=== PATIENT | female | born 1980 | race Caucasian/White ===

== ENCOUNTER 2021-01-06 07:48 | Outpatient (REF) | payer BC, SELFPAY ==
[2021-01-06 10:42] LABS: MANUAL DIFF FLAG NO
[2021-01-06 10:45] LABS: Basophils Percent Auto 0.6 % (0-2); Eosinophils Absolute Auto 0.1 X10*3/uL (0.0-0.4); Eosinophils Percent Auto 1.7 % (0-4); Hematocrit 39.1 % (37-47); Hemoglobin 12.7 g/dl (12.0-16.0); Imm Gran Abs Auto 0.02 X10*3/uL (0.00-0.03); Imm Gran Pct Auto 0.3 % (0.0-0.4); Lymphocytes Absolute Auto 2.8 X10*3/uL (1.2-4.9); Lymphocytes Percent Auto 45.2 % (20-40); Mean Corpuscular HGB Conc 32.5 g/dl (31.0-35.0); Mean Corpuscular Hemoglobin 29.6 pg (27.0-33.0); Mean Corpuscular Volume 91.1 fL (80-98); Monocytes Absolute Auto 0.5 X10*3/uL (0.1-1.2); Monocytes Percent Auto 8.4 % (2-11); Neutrophils Absolute Auto 2.8 X10*3/uL (2.0-8.3); Neutrophils Percent Auto 43.8 % (45-73); Platelet Count 321 X10*3/uL (160-400); Red Blood Count 4.29 X10*6/uL (4.20-5.50); Red Cell Distribution Width 13.3 % (11.0-16.0); White Blood Count 6.3 X10*3/uL (4.8-10.8)
[2021-01-06 11:11] LABS: Alanine Aminotransferase 12 U/L (0-31); Albumin Level 4.2 g/dL (3.5-5.0); Alkaline Phosphatase 33 U/L (39-117); Anion Gap 12 (12-20); Aspartate Amino Transferase 15 U/L (5-31); Bilirubin Total 0.7 mg/dL (0.0-1.0); Blood Urea Nitrogen 10 mg/dL (9-16); Calcium 9.1 mg/dL (8.4-10.2); Carbon Dioxide 25 mmol/L (22-29); Chloride 107 mmol/L (96-108); Cholesterol 197 mg/dL; Estimated Glomerular Filt Rate > 60; Glucose Fasting 87 mg/dL (60-99); HDL Cholesterol 71 mg/dL; LDL Cholesterol Calculated 104 mg/dl; Potassium 4.4 mmol/L (3.3-5.1); Sodium 140 mmol/L (135-145); Total Protein 6.9 g/dL (6.5-8.0); Triglycerides 110 mg/dL
[2021-01-06 11:33] LABS: TSH reflex Free T4 0.85 uIU/mL (0.32-4.0)
== END 2021-01-06 07:49 | disposition home or self-care (01) ==
LOC: HO.WFDLDS 07:48
PROVIDERS: Visit Provider Family Medicine
DX: Z00.00 Encounter for general adult medical examination without abnormal findings (principal)
CPT/HCPCS: 36415; 80053; 80061; 84443; 85025

== ENCOUNTER 2021-04-28 13:32 | Outpatient (REF) | payer BC, SELFPAY ==
[2021-04-29 02:50] LABS: CT PCR DETECTED (Not Detect.); NG PCR NOT DETECTED (Not Detect.)
[2021-04-29 11:03] LABS: BV Int Neg Control Negative (Negative); BV Int Pos Control Positive (Positive)
[2021-05-02 23:52] LABS: HPV mRNA E6/E7 rflx Not Detected (Not Detected)
== END 2021-04-28 13:33 | disposition home or self-care (01) ==
LOC: HO.LAB 13:32
PROVIDERS: Advanced Practice Midwife; PCP Hospitalist; Visit Provider Advanced Practice Midwife
DX: Z01.419 Encounter for gynecological examination (general) (routine) without abnormal findings (principal); Z11.51 Encounter for screening for human papillomavirus (HPV); Z20.2 Contact with and (suspected) exposure to infections with a predominantly sexual mode of transmission
CPT/HCPCS: 87480; 87491; 87510; 87591; 87624; 87660; 88142

== ENCOUNTER 2022-01-06 07:12 | Outpatient (REF) | payer BC, SELFPAY ==
[2022-01-06 11:16] LABS: MANUAL DIFF FLAG NO
[2022-01-06 11:25] LABS: Basophils Absolute Auto 0.1 X10*3/uL (0.0-0.2); Basophils Percent Auto 0.7 % (0-2); Eosinophils Absolute Auto 0.1 X10*3/uL (0.0-0.4); Eosinophils Percent Auto 2.1 % (0-4); Hematocrit 40.4 % (37.0-47.0); Hemoglobin 12.8 g/dl (12.0-16.0); Imm Gran Abs Auto 0.02 X10*3/uL (0.00-0.03); Imm Gran Pct Auto 0.3 % (0.0-0.4); Lymphocytes Absolute Auto 2.5 X10*3/uL (1.2-4.9); Mean Corpuscular HGB Conc 31.7 g/dl (31.0-35.0); Mean Corpuscular Hemoglobin 28.8 pg (27.0-33.0); Mean Corpuscular Volume 90.8 fL (80.0-98.0); Mean Platelet Volume 9.9 fL (9.4-12.3); Monocytes Absolute Auto 0.6 X10*3/uL (0.1-1.2); Monocytes Percent Auto 8.6 % (2-11); Neutrophils Absolute Auto 3.5 x10*3/uL (2.0-8.3); Neutrophils Percent Auto 51.3 % (45-73); Platelet Count 338 X10*3/uL (160-400); Red Blood Count 4.45 X10*6/uL (4.20-5.50); Red Cell Distribution Width 13.1 % (11.0-16.0); White Blood Count 6.8 X10*3/uL (4.8-10.8)
[2022-01-06 12:00] LABS: Alanine Aminotransferase 12 U/L (0-31); Alkaline Phosphatase 37 U/L (39-117); Anion Gap 12 (12-20); Aspartate Amino Transferase 17 U/L (5-31); Bilirubin Total 0.6 mg/dL (0.0-1.0); Blood Urea Nitrogen 9 mg/dL (9-16); Calcium 8.7 mg/dL (8.4-10.2); Carbon Dioxide 25 mmol/L (22-29); Chloride 107 mmol/L (96-108); Cholesterol 199 mg/dL; Estimated Glomerular Filt Rate > 60; Glucose Fasting 86 mg/dL (60-99); HDL Cholesterol 78 mg/dL; LDL Cholesterol Calculated 105 mg/dl; Potassium 4.4 mmol/L (3.3-5.1); Sodium 140 mmol/L (135-145); Total Protein 6.6 g/dL (6.5-8.0); Triglycerides 82 mg/dL
[2022-01-06 12:01] LABS: Appearance Urine Clear; Color Urine Yellow; Glucose Urine UA Negative (Negative); Leukocyte Esterase Urine Trace (Negative); Nitrite Urine Negative (Negative); Specific Gravity - Urine <= 1.005 (1.005-1.025); Urine Blood Negative (Negative); Urine Ketones Negative (Negative); Urine Protein Negative (Neg-Trace)
[2022-01-06 12:10] LABS: Bacteria Urine None Seen (None Seen); Hyaline Casts Urine 0-2 /LPF (0-2); RBC Urine 0-2 /HPF (0-2); Squamous Epithelial Cell Urine 0-2 /HPF (0-2); WBC Urine 0-5 /HPF (0-5)
[2022-01-06 12:14] LABS: HBS Num1 6.46 mIU/mL (0-7.99); HBc Num1 0.06 S/CO (0.00-0.79); HBsAGNum1 0.17 S/CO (0.00-0.99); HIV AB/AG Nonreactive (Nonreactive); HIV Num 1 0.05 S/CO (0.00-0.99); Hepatitis B Core Antibody Nonreactive (Nonreactive); Hepatitis B Surface Antigen Negative (Negative); ~HepC Num1 0.06 S/CO (0.00-0.79); ~Hepatitis B Surface Antibody NONREACTIVE (Nonreactive); ~Hepatitis C Antibody Nonreactive (Nonreactive)
[2022-01-06 12:15] LABS: TSH reflex Free T4 0.81 uIU/mL (0.32-4.0)
[2022-01-07 07:15] LABS: Syphilis Screen Nonreactive (Nonreactive)
== END 2022-01-06 07:13 | disposition home or self-care (01) ==
LOC: HO.WFDLDS 07:12
PROVIDERS: Visit Provider Family Medicine
DX: Z00.00 Encounter for general adult medical examination without abnormal findings (principal); Z11.3 Encounter for screening for infections with a predominantly sexual mode of transmission
CPT/HCPCS: 36415; 80053; 80061; 81001; 81003; 84443; 85025; 86704; 86706; 86780; 86803; 87340; 87389

== ENCOUNTER 2022-04-29 13:33 | Outpatient (REF) | payer BC, SELFPAY ==
[2022-04-30 02:09] LABS: CT PCR NOT DETECTED (Not Detect.); NG PCR NOT DETECTED (Not Detect.)
[2022-04-30 11:16] LABS: BV Int Neg Control Negative (Negative); BV Int Pos Control Positive (Positive)
== END 2022-04-29 13:34 | disposition home or self-care (01) ==
LOC: HO.LNP 13:33
PROVIDERS: Visit Provider Advanced Practice Midwife
DX: Z01.419 Encounter for gynecological examination (general) (routine) without abnormal findings (principal)
CPT/HCPCS: 87480; 87491; 87510; 87591; 87660

== ENCOUNTER 2022-12-30 07:07 | Outpatient (REF) | payer BC, SELFPAY ==
[2022-12-30 11:56] LABS: Appearance Urine Clear; Color Urine Yellow; Glucose Urine UA Negative (Negative); Leukocyte Esterase Urine Negative (Negative); Nitrite Urine Negative (Negative); PH 8.5 (5.0-9.0); Urine Blood Negative (Negative); Urine Ketones Negative (Negative); Urine Protein Negative (Neg-Trace)
[2022-12-30 12:08] LABS: Syphilis Screen Nonreactive (Nonreactive)
[2022-12-30 12:19] LABS: Alanine Aminotransferase 26 U/L (0-31); Alkaline Phosphatase 45 U/L (39-117); Anion Gap 8 (12-20); Aspartate Amino Transferase 24 U/L (5-31); Bilirubin Total 0.5 mg/dL (0.0-1.0); Blood Urea Nitrogen 11 mg/dL (9-16); Carbon Dioxide 29 mmol/L (22-29); Chloride 108 mmol/L (96-108); Cholesterol 204 mg/dL; Estimated Glomerular Filt Rate > 60; Glucose Fasting 82 mg/dL (60-99); HDL Cholesterol 80 mg/dL; LDL Cholesterol Calculated 108 mg/dl; Potassium 4.3 mmol/L (3.3-5.1); Sodium 141 mmol/L (135-145); TSH reflex Free T4 0.78 uIU/mL (0.32-4.0); Total Protein 6.6 g/dL (6.5-8.0); Triglycerides 82 mg/dL
[2022-12-30 12:34] LABS: HIV AB/AG Nonreactive (Nonreactive); HIV Num 1 0.06 S/CO (0.00-0.99); Hepatitis B Surface Antigen Negative (Negative); ~HepC Num1 0.05 S/CO (0.00-0.79); ~Hepatitis C Antibody Nonreactive (Nonreactive)
== END 2022-12-30 07:08 | disposition home or self-care (01) ==
LOC: HO.WFDLDS 07:07
PROVIDERS: Advanced Practice Midwife; Visit Provider Family Medicine
DX: Z01.419 Encounter for gynecological examination (general) (routine) without abnormal findings (principal); Z00.00 Encounter for general adult medical examination without abnormal findings; Z12.4 Encounter for screening for malignant neoplasm of cervix; Z30.09 Encounter for other general counseling and advice on contraception; Z20.2 Contact with and (suspected) exposure to infections with a predominantly sexual mode of transmission
CPT/HCPCS: 36415; 80053; 80061; 81003; 84443; 86780; 86803; 87340; 87389

== ENCOUNTER 2023-03-17 15:51 | Outpatient (AMB) | payer BC, SELFPAY ==
--- NOTE | 2023-03-17 15:54 | A.OFFPC_ITS ---
Vital Signs 03/17/23 15:55 Height 5 ft 5 in Weight 131 lb 4 oz BMI 21.8 BP 120/68 Blood Pressure Location Lt brachial Position Sitting Intake Visit Reasons: PE Intake Note: Patient is here for her physical today. Patient is requesting a referral to [facility] dermatology. Patient would like her flu shot today. Allergies Cats Allergy (Unknown, Uncoded 03/17/23 15:57) WATERY EYES, PCN Allergy (Unknown, Uncoded 03/17/23 15:57) anaphylaxis Medication List - Last Reconciled 03/17/23 by Zander Jj MD norgestrel-ethinyl estradiol 0.3-30 mg-mcg (Low-Ogestrel (28)) 1 tab PO DAILY Tobacco use date assessed: 03/17/23 HPI PE HPI Details 42 y/o female presents for a CPE with f/ u labs and health maintenance. Labs were drawn 12/30/22. Reviewed labs with pt. Triglycerides 82. TC 204. LDL 108. HDL 80. PFSH Surgical History Hx of LASIK Social History Housing: House Alcohol intake: current Alcohol intake frequency: holidays/special occasions only Alcohol type: wine Patient Tobacco Use Status: Never used Tobacco e-Cigarette/Vaping Use: Never Used Second Hand Smoke Exposure: No service: No Current occupational status: employed Current occupational exposures/hazards: No Cognitive needs: No Hearing needs: No Vision needs: No Female Reproductive History Menstrual Age of Menarche: 9 Questionnaire Thrive Questionnaire Date Thrive assessed: 01/05/22 PATRICE-7 AMB Questionnaire PATRICE-7 Date PATRICE - 7 assessed: 01/05/22 Source: Developed by Drs. Gilmer George, Ilene Jones, Renaldo Veliz and colleagues, with an educational giovanni from [employer]. Review of Systems Const Denies chills, Denies fatigue, Denies fever(s), Denies headache(s) and Denies weakness Eyes Denies change in vision ENT Denies dizziness, Denies headache(s), Denies hearing loss, Denies nasal congestion, Denies sinus pain, Denies sinus pressure and Denies sore throat Card Denies chest pain, Denies lightheadedness, Denies dyspnea and Denies other (palpitations) Resp Denies cough, Denies dyspnea and Denies wheezing GI Denies abdominal pain, Denies melena, Denies hematochezia, Denies change in bowel habits, Denies dyspepsia and Denies nausea Denies hematuria and Denies dysuria Musc Denies abnormal gait, Denies myalgias, Denies arthralgias, Denies numbness and Denies tingling Skin/Breast Denies rash, Denies unusual bruising and Denies wounds Neuro Denies abnormal gait, Denies dizziness, Denies headache(s), Denies memory loss, Denies numbness, Denies Sensory deficit (Neuro), Denies tingling and Denies weakness Psych Denies anxiety, Denies depression and Denies memory loss Endo Denies cold intolerance, Denies fatigue, Denies heat intolerance, Denies polydipsia and Denies polyuria George/Lymph Denies easy bleeding and Denies easy bruising Aller/Immun Denies wheezing Physical exam (Primary Care) Vital Signs: Last Vital Signs BP 120/68 03/17/23 15:55 BMI result Body Mass Index 21.8 Tobacco/Smoking Status: Tobacco use Status Tobacco use date assessed 03/17/23 03/17/23 16:00 Patient Tobacco Use Status Never used Tobacco 03/17/23 16:00 e-Cigarette/Vaping Use Never Used 03/17/23 16:00 Thrive Assessment: Date of Thrive Assessment Date Thrive assessed 01/05/22 03/17/23 16:00 Const General: no acute distress, well developed, alert and awake Nutritional Appearance: well nourished Orientation/consciousness: patient oriented x3 HENMT Head: Yes normocephalic and Yes atraumatic Ears: hearing grossly normal bilaterally and TM's normal bilaterally General nose exam: Normal external nose present and Normal nares present Mouth: Normal oral and palatal mucosa present and moist mucous membranes Teeth and gingiva: dentition normal Throat: Yes posterior oropharynx normal Eyes General: appearance normal, both eyes and all related structures Pupils: Equal, round and reactive pupils present and Pupil accommodation reflex normal EOM: EOMs intact bilaterally Neck Other: 3 cm lipoma at back of neck Neck: Yes normal visual inspection, Yes no lymphadenopathy and Yes trachea mi dline Thyroid: Thyroid normal Carotids: no bruits Lymphatic: no lymphadenopathy noted Chest Chest palpation & inspection: normal inspection of the chest Resp Effort & Inspection: normal respiratory effort Auscultation: clear to auscultation bilaterally Cardio Rate: regular rate Rhythm: regular rhythm Heart sounds: S1 normal heart sound present, S2 normal heart sound present, no gallops, no murmurs and no rubs Bruits: no abdominal aortic bruits and no carotid bruits GI Palpation (GI): No Abdominal aortic bruit present, Soft to palpation, nontender, No hepatosplenomegaly present and No Rebound tenderness present Auscultation: normal bowel sounds General: Yes no CVA tenderness Back/Spine/Pelvis Back: no CVA tenderness Cervical Spine: cervical ROM normal and No Cervical spine tenderness Thoracic/Lumbar Spine: thoraco-lumbar ROM normal, No pain with thoraco-lumbar ROM, No thoracic spinal tenderness and No lumbar spinal tenderness Skin Lesions: no lesions Rashes: no rashes Trauma: no lacerations or abrasions Wounds: no wounds Nails: normal Neuro General: patient oriented x3 Cranial nerves: Yes Equal, round and reactive pupils present Cognition (Neuro): normal cognition Gait exam (Neuro): Normal gait present Motor exam (neuro): 5/5 motor strength present throughout Sensory Exam: No Sensory deficit (Neuro) Deep tendon reflexes (DTR's): Right patellar reflex intensity grade: 2+ and Left patellar reflex intensity grade: 2+ Extrem General: Yes normal to inspection and No edema Psych Appearance: grossly normal Affect: normal affect Attitude: cooperative Thought process: Normal thought process present Office Procedures Flu Questionnaire Does the patient have a severe egg allergy?: No Does the patient have severe life threatening allergies?: No Does the patient have a fever or illness today?: No Has the patient ever had Guillain-Susan Syndrome?: No Has the patient ever had any past reaction to a flu shot?: No Immunizations flu vacc [id number] 6mos up(PF) 60 mcg(15 mcgx4)/0.5 mL IM syringe Performing Provider: Zander Jj MD Performing Location: [facility] [place] [facility] Administered by: Aicha Cheng CMA on 03/17/23 16:18 Dose Route Admin Location Dispensed Lot Number Expiration Date NDC Brick Paver 0.5 mL IM Left Deltoid 0.5 mL [id number] 11/14/23 79933-636-08 [employer] VIS Given Date VIS Provided VIS Publication Date 03/17/23 Single Vaccine 20 Eligibility Eligibility Date Funding Source Not [facility] Eligible 03/17/23 Private Assessment and Plan Assessment & Plan (1) Annual physical exam: Code(s): Z00.00 - Encounter for general adult medical examination without abnormal findings Plan: 42-year-old?female?presents?for?complete?physical?exam Encouraged?ongoing?healthy?diet?with?active?lifestyle?and?plenty?of?exercise (2) Screening for malignant neoplasm of cervix: Comment: 04/28/21 pap= neg w neg hpv Code(s): Z12.4 - Encounter for screening for malignant neoplasm of cervix Plan: Scheduled?for?Pap?smear?in?April Follow-up?with?your?biopsychologist (3) Lipoma: Code(s): D17.9 - Benign lipomatous neoplasm, unspecified Plan: 2-3?cm,?mildly?irritated?lipoma?at?right?posterolateral?neck Referred?to?dermatology?as?per?patient?request (4) Breast cancer screening by mammogram: Code(s): Z12.31 - Encounter for screening mammogram for malignant neoplasm of breast Plan: Mammogram?ordered?by?her?biopsychologist She?will?request?that?the?report?be?forwarded?to?me?as?well Orders: Orders Influenza [id number] Immunization Today Z23 - Encounter for immunization Referrals Dermatology Referral D17.9 - Benign lipomatous neoplasm, unspecified Coding Level of Care Code Est Pt Prev Care 40-64y(60015) Diagnoses Annual physical exam Z00.00 Screening for malignant neoplasm of cervix Z12.4 Lipoma D17.9 Breast cancer screening by mammogram Z12.31
[2023-03-17 15:55] VITALS: BP 120/68; BMI 21.8
== END 2023-03-17 17:08 | disposition home or self-care (01) ==
PROVIDERS: PCP Hospitalist; Visit Provider Family Medicine
DX: Z00.00 Encounter for general adult medical examination without abnormal findings (principal); D17.9 Benign lipomatous neoplasm, unspecified; Z12.31 Encounter for screening mammogram for malignant neoplasm of breast; Z23 Encounter for immunization
CPT/HCPCS: 90471; 90686; 99396

== ENCOUNTER 2023-06-17 13:58 | Outpatient (AMB) | payer BC, SELFPAY ==
[2023-06-17 14:01] VITALS: BP 120/72; BMI 21.6
--- NOTE | 2023-06-17 14:01 | MHC.OFFVIS ---
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 She is not having any issues at all. She was on control pills for many years and liked having her period every 28 days but decided to go off them last June and she feels very good being off the pills and she is getting her periods about every 25 days. She has not been sexually active and she is very very careful because of her history of herpes. If she does become sexually active which she may she plans to use condoms. She is in a new relationship and feeling very good about it. She is exercising and taking care of herself she runs and does yoga and she started taking but ballet. 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 [facility] Surgical History Hx of [facility] Social History Housing: House Alcohol intake: current Alcohol intake frequency: holidays/special occasions only Alcohol type: wine Patient Tobacco Use Status: Never used Tobacco e-Cigarette/Vaping Use: Never Used Second Hand Smoke Exposure: No service: No Current occupational status: employed Current occupational exposures/hazards: No Cognitive needs: No Hearing needs: No Vision needs: No Female Reproductive History Menstrual Age of Menarche: 9 Duration of menses: 3-5 days Date of last menstrual period: 05/27/23 control method: none Total pregnancies: 1 Full term: 1 Number of Living Children: 1 Date of last pap smear: 04/29/21 History of abnormal pap smear: No History of STI: Yes (HSV 2) Date of Mammogram: 06/05/23 History of abnormal mammogram: No Physical Exam Vital Signs: Last Vital Signs BP 120/72 06/17/23 14:01 BMI result Body Mass Index 21.6 Const General: healthy appearing, comfortable, no acute distress, well developed and alert Nutritional Appearance: average body habitus Orientation/consciousness: patient oriented x3 Limitations: no limitations HEENT Head: Yes normocephalic Neck Neck: Yes normal visual inspection Chest Chest palpation & inspection: normal inspection of the chest Breast/axilla inspection: normal inspection of the breasts and normal inspection of the axillae Breast/axilla palpation: normal palpation of the breasts and normal palpation of the axillae Resp Effort & Inspection: normal respiratory effort GI Inspection: Yes normal to inspection, No Abdominal wall edema and No distended Palpation (GI): Soft to palpation and nontender General: Yes bladder normal to palpation External Female Exam: normal external appearance and normal appearance of the urethra Speculum Exam - Vagina: normal appearance of the vagina, normal palpation and normal vaginal discharge Speculum Exam - Cervix: normal appearance of the cervix, normal palpation and nontender Bimanual exam- vagina & uterus: normal bimanual exam, normal palpation, uterine size normal, bladder normal to palpation, consistency normal, normal palpation, uterine mobility normal, uterine shape normal, No Cervical tenderness present, non-tender and no cervical motion tenderness Bimanual Exam- Adnexa, other: normal adnexae, no masses, normal and No adnexal tenderness Neuro General: patient oriented x3 Results Reviewed Results Reviewed: Name: Nelda Cortes Age/Sex: 41/F Attending: Miri Frye CNM : 1980 Submitted by: Karissa Singh CNM Copies to: Miri Frye CNM MR #: [id number] Kami Fernandez NP Status: DEP REF Collected: 04/28/21 Location: .LAB Received: 04/29/21 Interpretation Satisfactory for evaluation. Negative for intraepithelial lesion or malignancy. HPV mRNA E6/E7: NOT DETECTED This assay detects E6/E7 viral messenger RNA (mRNA) from 14 high-risk HPV types (16, 18, 31, 33, 35, 39, 45, 51, 52, 56, 58, 59, 66, 68) HPV testing performed by [facility], [place], [place]. See reference laboratory portion of the EMR for entire report. Clinical Information LMP: 04/08/21 Previous PAP test: Unknown Date, WNL Material Received ThinPrep Cervical Copies To Miri Frye [address] [place], [place] [id number] Karissa Singh [address] [place] [address] Kami Fernandez NP [address] [place], [place] [id number] Electronically Signed By: CLOVER Rizo (ASCP) 05/14/21 1300 Patient: Nelda Cortes Age/Sex: 41/F MR#: [id number] Page 1 of 2 Assessment & Plan Assessment & Plan (1) Screening for malignant neoplasm of cervix: Comment: 04/28/21 pap= neg w neg hpv Code(s): Z12.4 - Encounter for screening for malignant neoplasm of cervix (2) Well woman exam with routine gynecological exam: Code(s): Z01.419 - Encounter for gynecological examination (general) (routine) without abnormal findings (3) Breast cancer screening by mammogram: Code(s): Z12.31 - Encounter for screening mammogram for malignant neoplasm of breast (4) control counseling: Comment: Stopped her control pills June 2022. Will continue with condoms when she needs it Code(s): Z30.09 - Encounter for other general counseling and advice on contraception Plan -----Discussed in this visit the following: healthy balanced diet, regular and consistent exercise, getting recommended health screens, doing the best she can for her particular health concerns, kegel exercises, pap smear screening and followup recommendations, mammography screening and SBE, normal changes in cycles in her life stage--- . Reviewed her menstrual cycles and symptoms of ovulation and recommend being very aware of that as an additional adjunct to her plan for condom use. She is doing very well taking excellent care of herself and is feeling very hopeful about her new relationship. She would not be due for another Pap smear until 2025 and she gets regular mammograms and just had 1 in April. We will see her next year. Coding Level of Care Code Est Pt Prev Care 40-64y(73653) Diagnoses Screening for malignant neoplasm of cervix Z12.4 Well woman exam with routine gynecological exam Z01.419 Breast cancer screening by mammogram Z12.31 control counseling Z30.09
== END 2023-06-17 14:45 | disposition home or self-care (01) ==
LOC: HO.HWSM 13:58
PROVIDERS: PCP Hospitalist; Visit Provider Advanced Practice Midwife
DX: Z12.4 Encounter for screening for malignant neoplasm of cervix (principal); Z01.419 Encounter for gynecological examination (general) (routine) without abnormal findings; Z12.31 Encounter for screening mammogram for malignant neoplasm of breast; Z30.09 Encounter for other general counseling and advice on contraception
CPT/HCPCS: 99396

== ENCOUNTER → 2023-06-17 13:58 | Outpatient (BNVA) | payer BC, SELFPAY | PROVIDERS: PCP Hospitalist; Visit Provider Advanced Practice Midwife ==

== ENCOUNTER 2023-08-11 13:59 | Outpatient (AMB) | payer BC, SELFPAY ==
[2023-08-11 14:05] VITALS: BP 98/64; BMI 22.3
--- NOTE | 2023-08-11 14:05 | A.OFFVIS_ITS ---
Intake Vital Signs 08/11/23 14:05 Height 5 ft 5 in Weight 134 lb BMI 22.3 BP 98/64 Intake Visit Reasons: control consult Intake Note: would like the low-ogestral that she used to take in the past. currently taking an old script of this med. 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 Allergies Cats Allergy (Unknown, Uncoded 08/11/23 14:07) WATERY EYES, PCN Allergy (Unknown, Uncoded 08/11/23 14:07) anaphylaxis Medication List - Last Reconciled 08/11/23 by Karissa Singh CNM norgestrel-ethinyl estradiol 0.3-30 mg-mcg (Low-Ogestrel (28)) 1 tab PO DAILY Is last menstrual period known: Yes Last menstrual period: 08/10/23 Post menopausal: No HPI control consult HPI Details Is here to restart the control pills that she had been on before she had taken a break for about a year to see how things would be in her body and then she became sexually active again and was using condoms for a while but they are challenging. She has in a committed relationship and not worried about other factors at this time she has a very healthy lifestyle and is very physically active. She does not smoke she knows about the things to watch for in terms of blood clots and other concerns she had her mammogram done last fall right before her annual exam. She has the pills with her that she has been on and she just wants a refill on that prescription. She has restarted an old pack that she had but did not notice any adverse effects from restarting the pills, she wants the same ones she was on. [facility] Surgical History Hx of [facility] Social History Housing: House Alcohol intake: current Alcohol intake frequency: holidays/special occasions only Alcohol type: wine Patient Tobacco Use Status: Never used Tobacco e-Cigarette/Vaping Use: Never Used Second Hand Smoke Exposure: No service: No Current occupational status: employed Current occupational exposures/hazards: No Cognitive needs: No Hearing needs: No Vision needs: No Female Reproductive History Menstrual Age of Menarche: 9 Duration of menses: <3 days Date of last menstrual period: 08/10/23 control method: pills Total pregnancies: 1 Full term: 1 Number of Living Children: 1 Date of last pap smear: 04/29/21 (negative) Date of Mammogram: 06/05/23 Physical Exam Vital Signs: Last Vital Signs BP 98/64 08/11/23 14:05 BMI result Body Mass Index 22.3 Results Reviewed Results Reviewed: Name: Nelda Cortes Age/Sex: 41/F Attending: Miri Frye CNM : 1980 Submitted by: Karissa Singh CNM Copies to: Miri Frye CNM MR #: [id number] Kami Fernandez NP Status: DEP REF Collected: 04/28/21 Location: .LAB Received: 04/29/21 Interpretation Satisfactory for evaluation. Negative for intraepithelial lesion or malignancy. HPV mRNA E6/E7: NOT DETECTED This assay detects E6/E7 viral messenger RNA (mRNA) from 14 high-risk HPV types (16, 18, 31, 33, 35, 39, 45, 51, 52, 56, 58, 59, 66, 68) HPV testing performed by [facility], [place], [place]. See reference laboratory portion of the EMR for entire report. Clinical Information LMP: 04/08/21 Previous PAP test: Unknown Date, WNL Material Received ThinPrep Cervical Copies To Miri Frye CNM [address] [place] [address] [place] [address] Karissa Singh CNM [address] [place] [address] [place] [address] Kami Fernandez NP [address] [place] [phone] Electronically Signed By: CLOVER Rizo ([facility]) 05/14/21 1300 Patient: Nelda Cortes Age/Sex: 41/F MR#: [id number] Page 1 of 2 Assessment & Plan Assessment & Plan (1) control counseling: Comment: Stopped her control pills June 2022. Will continue with condoms when she needs to. 08/11/2023 she wishes to formally restart the pills that she had stopped. She has restarted already with a pack she had left over. Reordered prescription. Code(s): Z30. - Encounter for other general counseling and advice on contraception Plan Reviewed the control pills in detail including potential side effects and danger signs and what to look for and she is at low risk for any of those things she also has not noticed any decrease in libido since restarting them. We will see her for her annual exam when it is due and I have sent a prescription for 3 month supply with 4 refills to tide her over she is a Wednesday start and will be starting the next pack on Wednesday and is currently on her menses on the placebo pills. Medications: New norgestrel-ethinyl estradiol 0.3-30 mg-mcg (Low-Ogestrel (28)) 1 tab PO DAILY 84 tabs 4RF Coding Level of Care Code Est Pt Level 3 (38959) Diagnoses control counseling Z30.09
== END 2023-08-11 15:25 | disposition home or self-care (01) ==
PROVIDERS: PCP Hospitalist; Visit Provider Advanced Practice Midwife
DX: Z30.09 Encounter for other general counseling and advice on contraception (principal)
CPT/HCPCS: 99213

== ENCOUNTER → 2023-08-11 13:59 | Outpatient (BNVA) | payer BC, SELFPAY | PROVIDERS: PCP Hospitalist; Visit Provider Advanced Practice Midwife ==

== ENCOUNTER 2024-01-12 07:45 | Outpatient (REF) | payer BC, SELFPAY ==
[2024-01-12 11:10] LABS: Appearance Urine Cloudy; Color Urine Yellow; Glucose Urine UA Negative (Negative); Leukocyte Esterase Urine Moderate (2+) (Negative); Nitrite Urine Negative (Negative); PH 7.5 (5.0-9.0); UMIC TRIGGER UA YES; Urine Blood Negative (Negative); Urine Ketones Negative (Negative); Urine Protein 30 (1+) mg/dL (Neg-Trace)
[2024-01-12 11:18] LABS: Bacteria Urine 4+ (None Seen); RBC Urine 0-2 /HPF (0-2); WBC Urine 21-50 /HPF (0-5)
[2024-01-12 11:45] LABS: Alanine Aminotransferase 12 U/L (0-31); Albumin Level 3.9 g/dL (3.5-5.0); Alkaline Phosphatase 29 U/L (39-117); Anion Gap 10 (12-20); Aspartate Amino Transferase 15 U/L (5-31); Bilirubin Total 0.4 mg/dL (0.0-1.0); Blood Urea Nitrogen 12 mg/dL (9-16); Calcium 8.7 mg/dL (8.4-10.2); Carbon Dioxide 26 mmol/L (22-29); Chloride 108 mmol/L (96-108); Cholesterol 187 mg/dL (<200); Estimated Glomerular Filt Rate > 60; Glucose Fasting 86 mg/dL (60-99); HDL Cholesterol 69 mg/dL (>40); LDL Cholesterol Calculated 101 mg/dL (<100); Potassium 4.1 mmol/L (3.3-5.1); Sodium 140 mmol/L (135-145); Total Protein 6.5 g/dL (6.5-8.0); Triglycerides 86 mg/dL (<150)
[2024-01-12 12:07] LABS: Creatinine Urine 106.49 mg/dL; Microalbum/Creatinine Ratio Ur 13.1 ug/mg cr (<30)
[2024-01-12 12:09] LABS: TSH reflex Free T4 0.82 uIU/mL (0.32-4.0)
== END 2024-01-12 07:46 | disposition home or self-care (01) ==
LOC: HO.WFDLDS 07:45
PROVIDERS: Visit Provider Family Medicine
DX: Z00.00 Encounter for general adult medical examination without abnormal findings (principal); D17.9 Benign lipomatous neoplasm, unspecified; I10 Essential (primary) hypertension
CPT/HCPCS: 36415; 80053; 80061; 81001; 82043; 82570; 84443

== ENCOUNTER → 2024-03-20 15:47 | Outpatient (BNVA) | payer BC, SELFPAY | PROVIDERS: PCP Hospitalist; Visit Provider Family Medicine | DX: Z00.00 Encounter for general adult medical examination without abnormal findings (principal); E78.00 Pure hypercholesterolemia, unspecified; R21 Rash and other nonspecific skin eruption | CPT/HCPCS: 96127 ==

== ENCOUNTER → 2024-03-20 15:47 | Outpatient (AMB) | payer BC, SELFPAY ==
--- NOTE | 2024-03-20 16:25 | A.OFFPC_ITS ---
Vital Signs 03/20/24 16:30 Height 5 ft 5 in Weight 136 lb 6 oz BMI 22.7 BP 108/60 Blood Pressure Location Lt brachial Position Sitting Respiration 14 Pulse 67 Pulse Source Pulse Oximeter Temp 98.6 F Temp Source Temporal Artery Scan Pulse Oximetry (%) 100 Oxygen Delivery Method Room Air Intake Visit Reasons: CPE with f/u labs and health maint. - see comments Intake Note: CPE Allergies Cats Allergy (Unknown, Uncoded 08/11/23 14:07) WATERY EYES, PCN Allergy (Unknown, Uncoded 08/11/23 14:07) anaphylaxis Tobacco use date assessed: 03/20/24 Dental Screening Dental Screen Date: 03/20/24 Did you have a dental visit in the last 12 months?: Yes Did you have a dental problem in the last 6 months where you did not have access to dental care?: No Was dental information given to patient?: Patient has dentist HPI CPE with f/u labs and health maint. - see comments HPI Details 43 y/o female presents for a CPE with f/ u labs and health maint. Labs drawn 01/12/24. Reviewed labs with pt. Triglycerides 86. TC 187. LDL 101. HDL 69. 4+ urine bacteria seen. Has complaints of a rash. PFSH Surgical History Hx of LASIK Social History (Updated 03/20/24 @ 16:28 by [facility]ad Cruz [facility] Housing: House Alcohol intake: current Alcohol intake frequency: holidays/special occasions only Alcohol type: wine Patient Tobacco Use Status: Never used Tobacco e-Cigarette/Vaping Use: Never Used Second Hand Smoke Exposure: No Use of substances other than those prescribed or required for medical reasons: No service: No Current occupational status: employed Current occupational exposures/hazards: No Cognitive needs: No Hearing needs: No Vision needs: No Female Reproductive History Menstrual Age of Menarche: 9 Questionnaire PHQ-9 Over the last 2 weeks, how often have you been bothered by any of the following problems? 1. Little interest or pleasure in doing things: not at all 2. Feeling down, depressed, or hopeless: not at all 3. Trouble falling or staying asleep, or sleeping too much: not at all 4. Feeling tired or having little energy: not at all 5. Poor appetite or overeating: not at all 6. Feeling bad about yourself - or that you are a failure or have let yourself or your family down: not at all 7. Trouble concentrating on things, such as reading the newspaper or watching television: not at all 8. Moving or speaking so slowly that other people could have noticed. Or the opposite - being so fidgety or restless that you have been moving around a lot more than usual: not at all 9. Thoughts that you would be better off or of hurting yourself in some way: not at all Total score: 0 Depression Screening Interpretation: Negative Depression Screening Done: Yes 33122 - PHQ-9 Billing: Yes Source: Developed by Drs. Gilmer George, Ilene Jones, Renaldo Veliz and colleagues, with an educational giovanni from [employer]. Thrive Questionnaire Date Thrive assessed: 03/20/24 I am a: Patient What is your living situation today?: I have a steady place to live Within the past 12 months, did the food you bought not last and you didn't have the money to get more?: Never true Within the past 12 months, did you worry whether your food would run out before you got money to buy more?: Never true Do you have trouble paying for medicines?: No Do you have trouble getting transportation to medical appointments?: No Do you have trouble paying your heating and electricity bill?: No Do you have trouble taking care of your child, family member or friend?: No Do you have trouble with day-to-day activities such as bathing, preparing meals, shopping, managing finances, etc.?: No Are you currently unemployed and looking for a job?: No Are you interested in more education?: No Please select the resources that you would like help with: None Currently or been in a relationship where the following occur: No concerns reported THRIVE Score: 0 AUDIT C Alcohol Use Questionnaire (AUDIT-C) 1. How often do you have a drink containing alcohol?: 2-4 times a month 2. How many drinks containing alcohol do you have on a typical day when you are drinking?: 1 or 2 3. How often do you have six or more drinks on one occasion?: Never Total Score: 2 Score Reviewed/Action Taken: Yes PATRICE-7 AMB Questionnaire PATRICE-7 Date PATRICE - 7 assessed: 03/20/24 Feeling nervous, anxious, or on edge: 0 = Not at all Not being able to stop or control worryin = Not at all Worrying too much about different things: 0 = Not at all Trouble relaxin = Several days Being so restless that it is hard to sit still: 0 = Not at all Becoming easily annoyed or irritable: 0 = Not at all Feeling afraid as if something awful might happen: 0 = Not at all Total PATRICE-7 score (0-4 normal; 5-9 mild; 10-14 moderate; 15-21 severe): 1 Source: Developed by Drs. Gilmer George, Ilene Jones, Renaldo Veliz and colleagues, with an educational giovanni from [employer]. PATRICE-7 Assessment Billing PATRICE-7 Assessment Tool: PATRICE-7 Assessment 27382 Review of Systems Const Denies chills, Denies fatigue, Denies fever(s), Denies headache(s) and Denies weakness Eyes Denies change in vision ENT Denies dizziness, Denies headache(s), Denies hearing loss, Denies nasal congestion, Denies sinus pain, Denies sinus pressure and Denies sore throat Card Denies chest pain, Denies lightheadedness, Denies dyspnea and Denies other (palpitations) Resp Denies cough, Denies dyspnea and Denies wheezing GI Denies abdominal pain, Denies melena, Denies hematochezia, Denies change in bowel habits, Denies dyspepsia and Denies nausea Denies hematuria and Denies dysuria Musc Denies abnormal gait, Denies myalgias, Denies arthralgias, Denies numbness and Denies tingling Skin/Breast Denies rash, Denies unusual bruising and Denies wounds Neuro Denies abnormal gait, Denies dizziness, Denies headache(s), Denies memory loss, Denies numbness, Denies Sensory deficit (Neuro), Denies tingling and Denies weakness Psych Denies anxiety, Denies depression and Denies memory loss Endo Denies cold intolerance, Denies fatigue, Denies heat intolerance, Denies polydipsia and Denies polyuria George/Lymph Denies easy bleeding and Denies easy bruising Aller/Immun Denies wheezing Physical exam (Primary Care) Vital Signs: Last Vital Signs Temp 98.6 F 03/20/24 16:30 Pulse 67 03/20/24 16:30 Resp 14 03/20/24 16:30 BP 108/60 03/20/24 16:30 Pulse Ox 100 03/20/24 16:30 Oxygen Delivery Method Room Air 03/20/24 16:30 BMI result Body Mass Index 22.7 Tobacco/Smoking Status: Tobacco use Status Tobacco use date assessed 03/20/24 03/20/24 16:29 Patient Tobacco Use Status Never used Tobacco 03/20/24 16:29 e-Cigarette/Vaping Use Never Used 03/20/24 16:29 PHQ-9: PHQ-9 Score PHQ-9: Total score 0 03/20/24 17:01 Depression Screening Interpretation: Negative Thrive Assessment: Date of Thrive Assessment Date Thrive assessed 03/20/24 03/20/24 16:29 Currently or been in a relationship where the following occur: No concerns reported Const General: no acute distress, well developed, alert and awake Nutritional Appearance: well nourished Orientation/consciousness: patient oriented x3 HENMT Head: Yes normocephalic and Yes atraumatic Ears: hearing grossly normal bilaterally and TM's normal bilaterally General nose exam: Normal external nose present and Normal nares present Mouth: Normal oral and palatal mucosa present and moist mucous membranes Teeth and gingiva: dentition normal Throat: Yes posterior oropharynx normal Eyes General: appearance normal, both eyes and all related structures Pupils: Equal, round and reactive pupils present and Pupil accommodation reflex normal EOM: EOMs intact bilaterally Neck Neck: Yes normal visual inspection, Yes no lymphadenopathy and Yes trachea midline Thyroid: Thyroid normal Carotids: no bruits Lymphatic: no lymphadenopathy noted Chest Chest palpation & inspection: normal inspection of the chest Resp Effort & Inspection: normal respiratory effort Auscultation: clear to auscultation bilaterally Cardio Rate: regular rate Rhythm: regular rhythm Heart sounds: S1 normal heart sound present, S2 normal heart sound present, no gallops, no murmurs and no rubs Bruits: no abdominal aortic bruits and no carotid bruits GI Palpation (GI): No Abdominal aortic bruit present, Soft to palpation, nontender, No hepatosplenomegaly present and No Rebound tenderness present Auscultation: normal bowel sounds General: Yes no CVA tenderness Back/Spine/Pelvis Back: no CVA tenderness Cervical Spine: cervical ROM normal and No Cervical spine tenderness Thoracic/Lumbar Spine: thoraco-lumbar ROM normal, No pain with thoraco-lumbar ROM, No thoracic spinal tenderness and No lumbar spinal tenderness Skin Lesions: no lesions Rashes: no rashes Trauma: no lacerations or abrasions Wounds: no wounds Nails: normal Neuro General: patient oriented x3 Cranial nerves: Yes Equal, round and reactive pupils present Cognition (Neuro): normal cognition Gait exam (Neuro): Normal gait present Motor exam (neuro): 5/5 motor strength present throughout Sensory Exam: No Sensory deficit (Neuro) Deep tendon reflexes (DTR's): Right patellar reflex intensity grade: 2+ and Left patellar reflex intensity grade: 2+ Extrem General: Yes normal to inspection and No edema Psych Appearance: grossly normal Affect: normal affect Attitude: cooperative Thought process: Normal thought process present Coding Level of Care Code Est Pt Level 3 (52302) Est Pt Prev Care 40-64y(62186) Diagnoses Annual physical exam Z00.00 Elevated LDL cholesterol level E78.00 Screening for malignant neoplasm of cervix Z12.4 Breast cancer screening by mammogram Z12.31 Screening for colon cancer Z12.11 Rash and nonspecific skin eruption R21 Additional Codes PATRICE-7 Assessment Billing - PATRICE-7 Assessment Tool: PATRICE-7 Assessment 92604 ( [id number]) Assessment & Plan Assessment & Plan (1) Annual physical exam: Code(s): Z00.00 - Encounter for general adult medical examination without abnormal findings Category: Medical Plan: 43-year-old?female?presents?for?complete?physical?exam Encouraged?healthy?diet?with?active?lifestyle?and?plenty?of?exercise (2) Elevated LDL cholesterol level: Code(s): E78.00 - Pure hypercholesterolemia, unspecified Category: Medical Plan: Mildly?elevated?LDL?cholesterol.??Her?HDL?ratios?are?good Work?on?a?diet?lower?in?saturated?fats?and?cholesterol No?indication?for?medicine?at?this?time (3) Screening for malignant neoplasm of cervix: Comment: 04/28/21 pap= neg w neg hpv Code(s): Z12.4 - Encounter for screening for malignant neoplasm of cervix Category: Medical Plan: Followed?by?[facility]?hr associate Pap?smear?earlier?this?year?was?negative Continue?screening?with?gynecology?as?recommended (4) Breast cancer screening by mammogram: Code(s): Z12.31 - Encounter for screening mammogram for malignant neoplasm of breast Category: Medical Plan: Mammogram?in?May?was?negative?for?malignancy.??Continue?annual?screening (5) Screening for colon cancer: Code(s): Z12.11 - Encounter for screening for malignant neoplasm of colon Category: Medical Plan: Patient?is?43.??She?has?never?had?a?colonoscopy Referred?to?GI (6) Rash and nonspecific skin eruption: Code(s): R21 - Rash and other nonspecific skin eruption Category: Medical Plan: Has?seen?dermatology?in?the?past?and?was?given?triamcinolone Refilled?this Orders: Orders Comprehensive Robert Lee. Panel Fast Today Z00.00 - Encounter for general adult medical examination without abnormal findings, Z12.11 - Encounter for screening for malignant neoplasm of colon Lipid Panel Today Z00.00 - Encounter for general adult medical examination without abnormal findings, Z12.11 - Encounter for screening for malignant neoplasm of colon TSH reflex Free T4 Today Z00.00 - Encounter for general adult medical examination without abnormal findings, Z12.11 - Encounter for screening for malignant neoplasm of colon UA and rflx microscopic Today Z00.00 - Encounter for general adult medical examination without abnormal findings, Z12.11 - Encounter for screening for malignant neoplasm of colon Complete Blood Count Auto Diff Today Z00.00 - Encounter for general adult medical examination without abnormal findings, Z12.11 - Encounter for screening for malignant neoplasm of colon Microalbumin, Random (w Creat) Today I10 - Essential (primary) hypertension, Z12.11 - Encounter for screening for malignant neoplasm of colon Referrals Gastroenterology Referral Z12.11 - Encounter for screening for malignant neoplasm of colon Medications: New triamcinolone acetonide 0.1% 1 appl topical BID 14 days 60 grams 0RF
[2024-03-20 16:30] VITALS: BP 108/60; PULSE 67; RESP 14; TEMP 37; O2SAT 100; BMI 22.7
== END ==
LOC: HO.HMCFM 15:48
PROVIDERS: PCP Hospitalist; Visit Provider Family Medicine
DX: Z00.00 Encounter for general adult medical examination without abnormal findings (principal); E78.00 Pure hypercholesterolemia, unspecified; R21 Rash and other nonspecific skin eruption; Z12.31 Encounter for screening mammogram for malignant neoplasm of breast; Z12.11 Encounter for screening for malignant neoplasm of colon

== ENCOUNTER 2024-06-09 09:08 | Outpatient (REF) | payer BC, SELFPAY ==
[2024-06-09 12:39] LABS: Influenza A PCR NEGATIVE (Negative); Influenza B PCR NEGATIVE (Negative); Resp Syncy Virus RNA Qual PCR NEGATIVE (Negative); SARS COV2 PCR INHOUSE NEGATIVE (Negative)
--- OUTSIDE RECORDS SUMMARY | 2024-06-09 13:58 | XMS_ITS | Data Portability ---
Author Organization [facility] UROLOGY Address [address] [facility] [address] [place] [address] Care Team Providers Care Property Claim Rep Name Role Phone NAGI HERNANDES Primary Care Provider NAGI HERNANDES Referring Provider Assessment No assessment recorded. Plan of Treatment Reminders Order Date Submit Date Provider Last Modified By Organization Details Last Modified Time Details Appointments None recorded. Lab None recorded. Referral dermatologi st referral - Patient with atopic dermatitis on face resistant to Medrol Dosepak and long prednisone taper. 2018 019 ANGIE Welsh MD, [address] [place] [address], [facility] [address], [place], [address], 9 10:28:35 Procedures None recorded. Surgeries None recorded. Imaging None recorded. Medication Orders hydroxyzine HCl 25 mg tablet [email or web address] [facility], [address] [place] [address], [address], 9 13:21:43 methylpredn isolone 4 mg tablets in a dose pack 2018 [email or web address] [facility], [address] [place] [address], [address], 9 13:21:49 triamcinolo ne acetonide 0.1 % topical cream [email or web address] [facility], [address] [place] [address], [address], 9 13:21:56 prednisone 10 mg tablet [email or web address] [facility], [address] [place] [address], [address], 9 14:03:19 Patient TargetsNo targets recorded. Patient InstructionsNo instructions recorded. 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 Referring Physician: Fransisca Avendaño, Family Medicine, Encounter Date: 08/09/2018 Results Created Date Observation Date Name Description Value Unit Range Abnormal Flag Note LastModifiedBy Organization Detail LastModifiedTime 12/29/19 18 12/28/2017 lipid panel , serum cholesterol, total 189 mg/dL <200 normal Not Available [facility] [address], [address], 12/28/2017 16:53:14 12/29/19 18 12/28/2017 lipid panel , serum HDL cholesterol 76 mg/dL >50 normal Not Available [facility] [address], [address], 12/28/2017 16:53:14 12/29/19 18 12/28/2017 lipid panel , serum triglyceride s 100 mg/dL <150 normal Not Available [facility] [address], [address], 12/28/2017 16:53:14 12/29/19 18 12/28/2017 lipid panel , serum LDL-choleste rol 93 mg/dL _(sarwat c) normal Refer ence range : <100 Sd able range <100 mg/dL for prima ry preve ntion ; <70 mg/dL for patie nts with CHD or diabe tic patie nts with > or = 2 CHD risk facto rs. LDL-C is now calcu lated using the [facility] n-Hop kins calcu prasad n, which is a valid ated novel metho d garciai demetri kendy r accur acy than the Fried lluvia equat ion in the estim ation of LDL-C . Dayanara valdivia SS et al. ELISHA. 2013; 310(1 9): 2061- 2068 (http ://ed ucati on.[employer]lon[employer]hy Works. Material Mix/f aq/FA Q164) Not Available [facility] [place] [facility] [address], [place], [address], 12/28/2017 16:53:14 12/29/19 18 12/28/2017 lipid panel , serum chol/HDLC ratio 2.5 (calc ) <5.0 normal Not Available [facility] [place] [facility] [address], [place], [address], 12/28/2017 16:53:14 12/29/19 18 12/28/2017 lipid panel , serum non HDL cholesterol 113 mg/dL _(sarwat c) <130 normal For patie nts with diabe sam plus 1 major ASCVD risk facto r, treat ing to a non-H DL-C goal of <100 mg/dL (LDL- C of <70 mg/dL ) is jeanette rouse n. Not Available [facility] [place] [facility] [address], [place], [address], 12/28/2017 16:53:14 12/29/19 18 12/28/2017 CMP, serum or plasm a glucose 86 mg/dL 65-99 normal Fasti ng refer ence inter marta Not Available [facility] [place] [facility] [address], [place], [address], 12/28/2017 16:53:15 12/29/19 18 12/28/2017 CMP, serum or plasm a urea nitrogen (BUN) 10 mg/dL 7-[address] [facility] [address], [place], [address], 12/28/2017 16:53:15 12/29/19 18 12/28/2017 CMP, serum or plasm a creatinine 0.78 mg/dL 0.50-1 .10 normal Not Available [facility] [place] [facility] [address] [place], [place], [address], 12/28/2017 16:53:15 12/29/19 18 12/28/2017 CMP, serum or plasm a eGFR non-afr. st helenian 96 mL/mi n/1.7 3m2 > or = 60 normal Not Available [facility] [place] [facility] [address] [place], [place], [address], 12/28/2017 16:53:15 12/29/19 18 12/28/2017 CMP, serum or plasm a eGFR 111 mL/mi n/1.7 3m2 > or = 60 normal Not Available [facility] [place] [facility] [address] [place], [place], [address], 12/28/2017 16:53:15 12/29/19 18 12/28/2017 CMP, serum or plasm a BUN/creatini ne ratio NOT APPLIC ABLE (calc ) 6-22 normal Not Available [facility] [place] [facility] [address] [place], [place], [address], 12/28/2017 16:53:15 12/29/19 18 12/28/2017 CMP, serum or plasm a sodium 138 mmol/ L 135-14 6 normal Not Available [facility] [address] [place], [place], [address], 12/28/2017 16:53:15 12/29/19 18 12/28/2017 CMP, serum or plasm a potassium 4.3 mmol/ L 3.5-5. 3 normal Not Available [facility] [address] [place], [place], [address], 12/28/2017 16:53:15 12/29/19 18 12/28/2017 CMP, serum or plasm a chloride 104 mmol/ L 98-110 normal Not Available [facility] [address] [place], [place], [address], 12/28/2017 16:53:15 12/29/19 18 12/28/2017 CMP, serum or plasm a carbon dioxide 25 mmol/ L 20-32 normal Not Available [facility] [address] [place], [place], [address], 12/28/2017 16:53:15 12/29/19 18 12/28/2017 CMP, serum or plasm a calcium 8.9 mg/dL 8.6-10 .2 normal Not Available [facility] [address] [place], [place], [address], 12/28/2017 16:53:15 12/29/19 18 12/28/2017 CMP, serum or plasm a protein, total 6.9 g/dL 6.1-8. 1 normal Not Available [facility] [address] [place], [place], [address], 12/28/2017 16:53:15 12/29/19 18 12/28/2017 CMP, serum or plasm a albumin 4.3 g/dL 3.6-5. 1 normal Not Available [facility] [address] [place], [place], [address], 12/28/2017 16:53:15 12/29/19 18 12/28/2017 CMP, serum or plasm a globulin 2.6 g/dL_ (calc ) 1.9-3. 7 normal Not Available [facility] [address] [place], [place], [address], 12/28/2017 16:53:15 12/29/19 18 12/28/2017 CMP, serum or plasm a albumin/glob ulin ratio 1.7 (calc ) 1.0-2. 5 normal Not Available [facility] [place] [facility] [address] [place], [place], [address], 12/28/2017 16:53:15 12/29/19 18 12/28/2017 CMP, serum or plasm a bilirubin, total 0.5 mg/dL 0.2-1. 2 normal Not Available [facility] [place] [facility] [address] [place], [place], [address], 12/28/2017 16:53:15 12/29/19 18 12/28/2017 CMP, serum or plasm a alkaline phosphatase 35 U/L 33-115 normal Not Available [facility] [place] [facility] [address] [place], [place], [address], 12/28/2017 16:53:15 12/29/19 18 12/28/2017 CMP, serum or plasm a AST 12 U/L 10-30 normal Not Available [facility] [place] [facility] [address] [place], [place], [address], 12/28/2017 16:53:15 12/29/19 18 12/28/2017 CMP, serum or plasm a ALT 11 U/L 6-29 normal Not Available [facility] [place] [facility] [address], [place], [address], 12/28/2017 16:53:15 12/29/19 18 12/28/2017 TSH, serum or plasm a TSH w/reflex to FT4 1.15 mIU/L normal Refer ence Range > or = 20 Years 0.40- 4.50 Pregn trenton Range s First trime ster 0.26- 2.66 Secon d trime ster 0.55- 2.73 Third trime ster 0.43- 2.[address] [facility] [address] [place], [place], [address], 12/28/2017 17:42:40 08/14/20 18 12/28/2017 vitam in D, 25-hy droxy , total , serum vitamin D,25-oh,tota l,ia 48 NG/mL 30-100 normal Vitam in D Statu s 25-OH Vitam in D: Defic iency : <20 ng/mL Insuf ficie ncy: 20 - 29 ng/mL Optim al: > or = 30 ng/mL For 25-OH Vitam in D testi ng on patie nts on D2-augustine pplem entat ion and patie nts for whom quant itati on of D2 and D3 fract ions is requi red, the [facility] Assur eD(TM ) 25-OH VIT D, (D2,D 3), LC/MS /MS is recom georgette d: order code 61547 (ihsan ents >2yrs ). For more infor jay valdivia on this test, go to: http: //[facility] kimani valdivia.bird stdia gnost ics.c om/fa q/FAQ 163 (This link is being provi ded for infor jay nal/e ducat ional purpo ses only. ) Not Available [facility] [address], [address], 12/28/2017 19:25:13 12/29/19 18 12/28/2017 CBC w/ auto diff white blood cell count 6.6 thous and/u L 3.8-10 .8 normal Not Available [facility] [address], [place], [address], 12/28/2017 19:25:13 12/29/19 18 12/28/2017 CBC w/ auto diff red blood cell count 4.38 rachell on/uL 3.80-5 [address] [facility] [address], [place], [address], 12/28/2017 19:25:13 12/29/19 18 12/28/2017 CBC w/ auto diff hemoglobin 12.9 g/dL 11.7-1 5.5 normal Not Available [facility] [place] [facility] [address], [place], [address], 12/28/2017 19:25:13 12/29/19 18 12/28/2017 CBC w/ auto diff hematocrit 38.9 % 35.0-4 5.0 normal Not Available [facility] [place] [facility] [address], [place], [address], 12/28/2017 19:25:13 12/29/19 18 12/28/2017 CBC w/ auto diff MCV 88.8 fL 80.0-1 00.0 normal Not Available [facility] [place] [facility] [address], [place], [address], 12/28/2017 19:25:13 12/29/19 18 12/28/2017 CBC w/ auto diff MCH 29.5 pg 27.0-3 3.0 normal Not Available [facility] [place] [facility] [address], [place], [address], 12/28/2017 19:25:13 12/29/19 18 12/28/2017 CBC w/ auto diff MCHC 33.2 g/dL 32.0-3 6.0 normal Not Available [facility] [place] [facility] [address], [place], [address], 12/28/2017 19:25:13 12/29/19 18 12/28/2017 CBC w/ auto diff RDW 12.7 % 11.0-1 5.0 normal Not Available [facility] [place] [facility] [address], [place], [address], 12/28/2017 19:25:13 12/29/19 18 12/28/2017 CBC w/ auto diff platelet count 288 thous and/u L 140-40 0 normal Not Available [facility] [place] [facility] [address], [place], [address], 12/28/2017 19:25:13 12/29/19 18 12/28/2017 CBC w/ auto diff MPV 9.9 fL 7.5-12 .5 normal Not Available [facility] [place] [facility] [address], [place], [address], 12/28/2017 19:25:13 12/29/19 18 12/28/2017 CBC w/ auto diff absolute neutrophils 3650 cells /uL 1500-7 800 normal Not Available [facility] [place] [facility] [address], [place], [address], 12/28/2017 19:25:13 12/29/19 18 12/28/2017 CBC w/ auto diff absolute lymphocytes 2264 cells /uL 850-39 00 normal Not Available [facility] [place] [facility] [address], [place], [address], 12/28/2017 19:25:13 12/29/19 18 12/28/2017 CBC w/ auto diff absolute monocytes 561 cells /uL 200-95 0 normal Not Available [facility] [place] [facility] [address], [place], [address], 12/28/2017 19:25:13 12/29/19 18 12/28/2017 CBC w/ auto diff absolute eosinophils 73 cells /uL 15-500 normal Not Available [facility] [place] [facility] [address], [place], [address], 12/28/2017 19:25:13 12/29/19 18 12/28/2017 CBC w/ auto diff absolute basophils 53 cells /uL 0-200 normal Not Available [facility] [place] [facility] [address], [place], [address], 12/28/2017 19:25:13 12/29/19 18 12/28/2017 CBC w/ auto diff neutrophils 55.3 % normal Not Available [facility] [place] [facility] [address], [place], [address], 12/28/2017 19:25:13 12/29/19 18 12/28/2017 CBC w/ auto diff lymphocytes 34.3 % normal Not Available [facility] [place] [facility] [address], [place], [address], 12/28/2017 19:25:13 12/29/19 18 12/28/2017 CBC w/ auto diff monocytes 8.5 % normal Not Available [facility] [place] [facility] [address], [place], [address], 12/28/2017 19:25:13 12/29/19 18 12/28/2017 CBC w/ auto diff eosinophils 1.1 % normal Not Available [facility] [place] [facility] [address], [place], [address], 12/28/2017 19:25:13 12/29/19 18 12/28/2017 CBC w/ auto diff basophils 0.8 % normal Not Available [facility] [place] [facility] [address], [place], [address], 12/28/2017 19:25:13 12/03/19 19 12/02/2018 lipid panel , serum cholesterol, total 190 mg/dL <200 normal Not Available [facility] [place] [facility] [address], [place], [address], 12/02/2018 19:56:28 12/03/1912/02/2018 lipid panel , serum HDL cholesterol 74 mg/dL >50 normal Not Available [facility] [place] [facility] [address] [place], [place], [address], 12/02/2018 19:56:28 12/03/1912/02/2018 lipid panel , serum triglyceride s 96 mg/dL <150 normal Not Available [facility] [place] [facility] [address] [place], [place], [address], 12/02/2018 19:56:28 12/03/1912/02/2018 lipid panel , serum LDL-choleste rol 97 mg/dL _(sarwat c) normal Refer ence range : <100 Sd able range <100 mg/dL for prima ry preve ntion ; <70 mg/dL for patie nts with CHD or diabe tic patie nts with > or = 2 CHD risk facto rs. LDL-C is now calcu lated using the [facility] n-Hop kins calcu latio n, which is a valid ated novel iraida rodriguez accur acpat than the Fried lluvia equat ion in the estim ation of LDL-C . Dayanara valdivia SS et al. ELISHA. 2013; 310(1 9): 2061- 2068 (http ://ed ucati on.[employer]lon[employer]hy Works. Material Mix/f aq/FA Q164) Not Available [facility] [place] [facility] [address] [place], [place], [address], 12/02/2018 19:56:28 12/03/1912/02/2018 lipid panel , serum chol/HDLC ratio 2.6 (calc ) <5.0 normal Not Available [facility] [place] [facility] [address], [place], [address], 12/02/2018 19:56:28 12/03/1912/02/2018 lipid panel , serum non HDL cholesterol 116 mg/dL _(sarwat c) <130 normal For patie nts with diabe sam plus 1 major ASCVD risk facto r, treat ing to a non-H DL-C goal of <100 mg/dL (LDL- C of <70 mg/dL ) is jeanette britto n. Not Available [facility] [place] [facility] [address], [place], [address], 12/02/2018 19:56:28 12/03/1912/02/2018 CMP, serum or plasm a glucose 79 mg/dL 65-99 normal Fasti ng refer ence inter marta Not Available [facility] [address] [place], [place], [address], 12/02/2018 19:56:29 12/03/1912/02/2018 CMP, serum or plasm a urea nitrogen (BUN) 17 mg/dL 7-25 normal Not Available [facility] [address] [place], [place], [address], 12/02/2018 19:56:29 12/03/1912/02/2018 CMP, serum or plasm a creatinine 0.83 mg/dL 0.50-1 .10 normal Not Available [facility] [address] [place], [place], [address], 12/02/2018 19:56:29 12/03/1912/02/2018 CMP, serum or plasm a eGFR non-afr. st helenian 88 mL/mi n/1.7 3m2 > or = 60 normal Not Available [facility] [address] [place], [place], [address], 12/02/2018 19:56:29 12/03/1912/02/2018 CMP, serum or plasm a eGFR 102 mL/mi n/1.7 3m2 > or = 60 normal Not Available [facility] [address] [place], [place], [address], 12/02/2018 19:56:29 12/03/1912/02/2018 CMP, serum or plasm a BUN/creatini ne ratio NOT APPLIC ABLE (calc ) 6-22 normal Not Available [facility] [address] [place] [address] [place], [place], [address], 12/02/2018 19:56:29 12/03/1912/02/2018 CMP, serum or plasm a sodium 139 mmol/ L 135-14 6 normal Not Available [facility] [address], [address], 12/02/2018 19:56:29 12/03/1912/02/2018 CMP, serum or plasm a potassium 3.9 mmol/ L 3.5-5. 3 normal Not Available [facility] [address], [address], 12/02/2018 19:56:29 12/03/1912/02/2018 CMP, serum or plasm a chloride 105 mmol/ L 98-110 normal Not Available [facility] [address], [place], [address], 12/02/2018 19:56:29 12/03/1912/02/2018 CMP, serum or plasm a carbon dioxide 24 mmol/ L 20-32 normal Not Available [facility] [address], [address], 12/02/2018 19:56:29 12/03/1912/02/2018 CMP, serum or plasm a calcium 8.7 mg/dL 8.6-10 .2 normal Not Available [facility] [address], [address], 12/02/2018 19:56:29 12/03/1912/02/2018 CMP, serum or plasm a protein, total 6.4 g/dL 6.1-8. 1 normal Not Available [facility] [address], [address], 12/02/2018 19:56:29 12/03/1912/02/2018 CMP, serum or plasm a albumin 4.0 g/dL 3.6-5. 1 normal Not Available [facility] [address] [place], [place], [address], 12/02/2018 19:56:29 12/03/1912/02/2018 CMP, serum or plasm a globulin 2.4 g/dL_ (calc ) 1.9-3. 7 normal Not Available [facility] [address] [place], [place], [address], 12/02/2018 19:56:29 12/03/1912/02/2018 CMP, serum or plasm a albumin/glob ulin ratio 1.7 (calc ) 1.0-2. 5 normal Not Available [facility] [address] [place], [place], [address], 12/02/2018 19:56:29 12/03/1912/02/2018 CMP, serum or plasm a bilirubin, total 0.6 mg/dL 0.2-1. 2 normal Not Available [facility] [address] [place], [place], [address], 12/02/2018 19:56:29 12/03/1912/02/2018 CMP, serum or plasm a alkaline phosphatase 35 U/L 33-115 normal Not Available [facility] [employer] [facility] [address] [place], [place], [address], 12/02/2018 19:56:29 12/03/1912/02/2018 CMP, serum or plasm a AST 12 U/L 10-30 normal Not Available [facility] [address] [place], [place], [address], 12/02/2018 19:56:29 12/03/1912/02/2018 CMP, serum or plasm a ALT 9 U/L 6-29 normal Not Available [facility] [address] [place], [place], [address], 12/02/2018 19:56:29 12/03/1912/02/2018 CBC w/ auto diff white blood cell count 6.1 thous and/u L 3.8-10 .8 normal Not Available [facility] [place] [facility] [address], [place], [address], 12/02/2018 20:48:48 12/03/1912/02/2018 CBC w/ auto diff red blood cell count 4.05 rachell on/uL 3.80-5 .10 normal Not Available [facility] [place] [facility] [address], [place], [address], 12/02/2018 20:48:48 12/03/1912/02/2018 CBC w/ auto diff hemoglobin 11.9 g/dL 11.7-1 5.5 normal Not Available [facility] [place] [facility] [address], [place], [address], 12/02/2018 20:48:48 12/03/1912/02/2018 CBC w/ auto diff hematocrit 36.3 % 35.0-4 5.0 normal Not Available [facility] [place] [facility] [address], [place], [address], 12/02/2018 20:48:48 12/03/1912/02/2018 CBC w/ auto diff MCV 89.6 fL 80.0-1 00.0 normal Not Available [facility] [place] [facility] [address], [place], [address], 12/02/2018 20:48:48 12/03/1912/02/2018 CBC w/ auto diff MCH 29.4 pg 27.0-3 3.0 normal Not Available [facility] [place] [facility] [address], [place], [address], 12/02/2018 20:48:48 12/03/1912/02/2018 CBC w/ auto diff MCHC 32.8 g/dL 32.0-3 6.0 normal Not Available [facility] [place] [facility] [address], [place], [address], 12/02/2018 20:48:48 12/03/1912/02/2018 CBC w/ auto diff RDW 12.9 % 11.0-1 5.0 normal Not Available [facility] [place] [facility] [address], [place], [address], 12/02/2018 20:48:48 12/03/1912/02/2018 CBC w/ auto diff platelet count 239 thous and/u L 140-40 0 normal Not Available [facility] [place] [facility] [address], [place], [address], 12/02/2018 20:48:48 12/03/19 19 12/02/2018 CBC w/ auto diff MPV 10.4 fL 7.5-12 .5 normal Not Available [facility] [place] [facility] [address], [place], [address], 12/02/2018 20:48:48 12/03/1912/02/2018 CBC w/ auto diff absolute neutrophils 3318 cells /uL 1500-7 800 normal Not Available [facility] [place] [facility] [address], [place], [address], 12/02/2018 20:48:48 12/03/1912/02/2018 CBC w/ auto diff absolute lymphocytes 2166 cells /uL 850-39 00 normal Not Available [facility] [place] [facility] [address], [place], [address], 12/02/2018 20:48:48 12/03/1912/02/2018 CBC w/ auto diff absolute monocytes 464 cells /uL 200-95 0 normal Not Available [facility] [place] [facility] [address], [place], [address], 12/02/2018 20:48:48 12/03/1912/02/2018 CBC w/ auto diff absolute eosinophils 122 cells /uL 15-500 normal Not Available [facility] [place] [facility] [address], [place], [address], 12/02/2018 20:48:48 12/03/1912/02/2018 CBC w/ auto diff absolute basophils 31 cells /uL 0-200 normal Not Available [facility] [place] [facility] [address], [place], [address], 12/02/2018 20:48:48 12/03/1912/02/2018 CBC w/ auto diff neutrophils 54.4 % normal Not Available [facility] [place] [facility] [address], [place], [address], 12/02/2018 20:48:48 12/03/1912/02/2018 CBC w/ auto diff lymphocytes 35.5 % normal Not Available [facility] [place] [facility] [address], [place], [address], 12/02/2018 20:48:48 12/03/1912/02/2018 CBC w/ auto diff monocytes 7.6 % normal Not Available [facility] [place] [facility] [address], [place], [address], 12/02/2018 20:48:48 12/03/1912/02/2018 CBC w/ auto diff eosinophils 2.0 % normal Not Available [facility] [place] [facility] [address], [place], [address], 12/02/2018 20:48:48 12/03/1912/02/2018 CBC w/ auto diff basophils 0.5 % normal Not Available [facility] [place] [facility] [address], [address], 12/02/2018 20:48:48 12/03/1912/02/2018 TSH, serum or plasm a TSH w/reflex to FT4 0.91 mIU/L normal Refer ence Range > or = 20 Years 0.40- 4.50 Pregn trenton Range s First trime ster 0.26- 2.66 Secon d trime ster 0.55- 2.73 Third trime ster 0.43- 2.[address] [facility] [place] [facility] [address], [address], 12/02/2018 22:07:29 12/03/1912/02/2018 vitam in D, 25-hy droxy , total , serum vitamin D,25-oh,tota l,ia 40 NG/mL 30-100 normal Vitam in D Statu s 25-OH Vitam in D: Defic iency : <20 ng/mL Insuf ficie ncy: 20 - 29 ng/mL Optim al: > or = 30 ng/mL For 25-OH Vitam in D testi ng on patie nts on D2-augustine pplem entat ion and patie nts for whom quant itati on of D2 and D3 fract ions is requi red, the [facility] Assur eD(TM ) 25-OH VIT D, (D2,D 3), LC/MS /MS is recom georgette d: order code 21995 (ihsan ents >2yrs ). For more tadeor jay valdivia on this test, go to: http: //[facility] gn[employer].c om/fa q/FAQ 163 (This link is being provi ded for infor jay nal/e dennis ional purpo ses only. ) Not Available [facility] [place] [facility] [address], [place], [address], 12/02/2018 22:52:27 Result Notes None recorded. Problems Name Problem SNOMED Code Status Onset Date Resolution Date Notes Provider Name and Address Organization Details Recorded Time Contact dermatitis 42904904 Completed 201612/09/2018 FRANSISCA AVENDAÑO NP [address] [place], [address], [facility] 9 12:54:11 Perioral dermatitis 552381409 Active 2018 FRANSISCA AVENDAÑO NP [address] [place], [address], [facility] 9 12:51:05 Problem Notes None recorded. Medical Equipment None Reported. Allergies Allergen ID Allergen Name Allergen Category Reaction Reaction Severity Criticality Documentation Date Start Date Code Code System Note Provider Name and Address Organization Details Recorded Time 829711 Product containin g penicilli n and antibioti c (product) medicatio n anaphylax is Not available Not available 04/05/2017 [id number] SNOMED Kenyatta Silveira [facility] 7 15:00:59 [id number] cat dander environme nt eye redness Not available Not available 12/06/2017 [id number] UNAbner Costa [facility] 8 08:44:50 Medications Name Sig Start Date Stop Date Status Note LastModified by Organization Details LastModified Time prednison e 10 mg tablet Take 1 tablet every day by oral route as directed . 08/09 completed Not Available Not Available Not Available Lotrisone 1 %-0.05 % topical cream APPLY TO THE AFFECTED AND SURROUND ING AREAS OF SKIN BY TOPICAL ROUTE 2 TIMES PER DAY IN THE MORNING AND EVENING FOR 2 WEEKS 12/09 completed complete d therapy- JF Not Available Not Available Not Available triamcino lone acetonide 0.1 % topical cream APPLY A THIN LAYER TO THE AFFECTED AREA(S) BY TOPICAL ROUTE 2 TIMES PER DAY 12/09 completed no longer taking- JF Not Available Not Available Not Available hydroxyzi ne HCl 25 mg tablet Take 1 tablet 3 times a day by oral route. 12/09 completed complete d therapy- JF Not Available Not Available Not Available mupirocin 2 % topical ointment APPLY A SMALL AMOUNT TO THE AFFECTED AREA BY TOPICAL ROUTE 3 TIMES PER DAY 12/09 completed no longer taking- JF Not Available Not Available Not Available methylpre dnisolone 4 mg tablets in a dose pack Take 1 dose pk by oral route as needed. 12/09 completed no longer taking- JF Not Available Not Available Not Available Jermain (28) 0.3 mg-30 mcg tablet Take 1 tablet every day by oral route. active Not Available Not Available No t Available Vitals Date Recorded Body height Provider Name an d Address Organization Details Last Updated DateTime 12/06/2017 162.56 cm Jennifer Costa [facility] 018 08:39:14 Date Recorded Body mass index (BMI) Body weight Provider Name and Address Organization Details Last Updated DateTime 12/06/2017 21.6 kg/m2 80207.64 g Jennifer Costa [facility] t 12/06/2017 08:40:39 Date Recorded Heart rate Provider Name an d Address Organization Details Last Updated DateTime 12/06/2017 70 /min Jennifer Costa [facility] 018 08:43:46 Date Recorded Body height Provider Name an d Address Organization Details Last Updated DateTime 07/22/2018 162.56 cm Jennifer Costa [facility] 019 10:00:20 Date Recorded Body mass index (BMI) Body weight Provider Name and Address Organization Details Last Updated DateTime 07/22/2018 22.5 kg/m2 57385.6 g Jennifer Costa [facility] 07/22/2018 10:00:24 Date Recorded Heart rate Provider Name an d Address Organization Details Last Updated DateTime 07/22/2018 68 /min Jennifer Costa [facility] 019 10:06:54 Date Recorded Oxygen saturation Oxygen saturation in Arterial blood by Pulse oximetry Provider Name and Address Organization Details Last Updated DateTime 07/22/2018 98 % 98 % Jennifer Costa [facility] 07/22/2018 10:06:57 Date Recorded Body height Provider Name an d Address Organization Details Last Updated DateTime 07/29/2018 162.56 cm Jennifer Costa [facility] 019 14:02:47 Date Recorded Body mass index (BMI) Body weight Provider Name and Address Organization Details Last Updated DateTime 07/29/2018 22.8 kg/m2 09518.79 g Jennifer Costa [facility] 07/29/2018 14:02:51 Date Recorded Heart rate Provider Name an d Address Organization Details Last Updated DateTime 07/29/2018 99 /min Jennifer Costa [facility] 019 14:04:41 Date Recorded Oxygen saturation Oxygen saturation in Arterial blood by Pulse oximetry Provider Name and Address Organization Details Last Updated DateTime 07/29/2018 63 % 63 % Jennifer Costa [facility] 07/29/2018 14:04:47 Date Recorded Body height Provider Name an d Address Organization Details Last Updated DateTime 08/09/2018 162.56 cm Jennifer Costa [facility] 14:01:58 Date Recorded Body mass index (BMI) Body weight Provider Name and Address Organization Details Last Updated DateTime 08/09/2018 22.5 kg/m2 93201.6 g Jennifer Costa [facility] 08/09/2018 14:02:09 Date Recorded Heart rate Provider Name an d Address Organization Details Last Updated DateTime 08/09/2018 63 /min Jennifer Costa [facility] 019 14:04:42 Date Recorded Oxygen saturation Oxygen saturation in Arterial blood by Pulse oximetry Provider Name and Address Organization Details Last Updated DateTime 08/09/2018 99 % 99 % Jennifer Costa [facility] 08/09/2018 14:04:47 Date Recorded Body height Provider Name an d Address Organization Details Last Updated DateTime 12/09/2018 163.2 cm Sue Flores [facility] 11/15 12:42:37 Date Recorded Body mass index (BMI) Body weight Provider Name and Address Organization Details Last Updated DateTime 12/09/2018 22.4 kg/m2 06187.35 g Sue Flores [facility] 12/09/2018 12:44:37 Date Recorded Heart rate Provider Name an d Address Organization Details Last Updated DateTime 12/09/2018 60 /min Sue Flores [facility] 11/15 12:44:55 Date Recorded Oxygen saturation Oxygen saturation in Arterial blood by Pulse oximetry Provider Name and Address Organization Details Last Updated DateTime 12/09/2018 98 % 98 % Sue Flores [facility] 12/09/2018 12:45:14 Date Recorded Systolic blood pressure Diastolic blood pressure Provider Name and Address Organization Details Last Updated DateTime 12/06/2017 100 mm[Hg] 60 mm[Hg] Jennifer Costa [facility] 12/06/2017 08:43:00 Date Recorded Systolic blood pressure Diastolic blood pressure Provider Name and Address Organization Details Last Updated DateTime 07/22/2018 98 mm[Hg] 60 mm[Hg] Jennifer Costa [facility] 07/22/2018 10:10:36 Date Recorded Systolic blood pressure Diastolic blood pressure Provider Name and Address Organization Details Last Updated DateTime 07/29/2018 100 mm[Hg] 60 mm[Hg] Jennifer Costa [facility] 07/29/2018 14:08:06 Date Recorded Systolic blood pressure Diastolic blood pressure Provider Name and Address Organization Details Last Updated DateTime 08/09/2018 110 mm[Hg] 60 mm[Hg] Jennifer Costa [facility] 08/09/2018 14:06:01 Date Recorded Systolic blood pressure Diastolic blood pressure Provider Name and Address Organization Details Last Updated DateTime 12/09/2018 106 mm[Hg] 68 mm[Hg] Suecourtney Flores [facility] 12/09/2018 12:44:29 Social History Question Answer Notes LastModified by Organizat ion Details LastModified Time Tobacco Smoking Status [facility] 15:00:22 What Is Your Level Of Alcohol Consumption? Occasional Information not available 04/05/2017 Auto Related Injury? No Information not available 04/05/2017 What Is Your Level Of Caffeine Consumption? Occasional Information not available 04/05/2017 What Type Of Diet Are You Following? 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 No Information not available 04/05/2017 Do You Use Insect Repellent Routinely? Yes Information not available 04/05/2017 Live Alone Or With Others? With Others Information not available 04/05/2017 Were You Hospitalized Related To Your Condition Recently? No Information not available 04/05/2017 Last Pap Smear 10/26/2017 Followed By EATING DISORDER SPECIALIST Information not available 11/04/2017 Last HbA1C Test 12/02/2018 FBS 79 [email or web address] Informati on not available 12/05/2018 Last LDL-C 12/02/2018 97 (HDL 74) [email or web address] Information n ot available 12/05/2018 Last TSH 12-02-18 0.91 [email or web address] Information no t available 12/05/2018 Marital Status Single Informatio n not available 04/05/2017 What Was The Date Of Your Most Recent Tobacco Screening? 12/06/2017 Information not available 12/07/2018 How Many Children Do You Have? 1 Information not available 04/05/2017 What Is Your Relationship Status? Single Information not available 04/05/2017 Do You Use Your Seat Belt Or Car Seat Routinely? Yes Information not available 04/05/2017 Are You Sexually Active? No Information not available 04/05/2017 Smoke Alarm In Home Yes Information not available 04/05/2017 Are You Passively Exposed To Smoke? No Information not available 04/05/2017 General Stress Level Low Information not available 04/05/2017 Do You Use Sunscreen Routinely? Yes Information not available 04/05/2017 Work Related Injury? No Information not available 04/05/2017 Sex: Unknown Functional Status Question Answer Note LastModified by Organization D etails LastModified Time What is your exercise level? Heavy Information not available 04/05/2017 Mental Status None recorded. Family History Relationship Description Onset Age of this Age Resolved Age Notes LastModified by Organization Details LastModified Time Father Hypertensive disorder [email or web address] Not available 2016 15:03:34 Mother Hypertensive disorder [email or web address] Not available 2016 15:03:43 Medical History Condition Response arthritis N defects or inherited diseases N gout N asthma N glaucoma N cataracts N COPD N claustrophobic N bleeding disorder N atrial fibrillation N breast cancer N GERD/reflux N diabetes N heart condition N colon cancer N hiatal hernia N GI problems N diverticulitis N anemia N hepatitis N anxiety disorder N headache N has pacemaker N stroke N back pain N Gynecological History Statement/Question Response Date and result of last mammogram 2018 -Normal Current Control Pill Duration of Flow (days) 4 Date of Last Pap 11/03/2018 Current Control Method BCPs Date of LMP 12/13/2018 Obstetrics History GPAL:G 0 P 0 0 0 0 Immunizations Vaccine Type Date Status Note Provider Jose Manuel hilliard and Address Organization Details Recorded Time Tdap 08/27/2014 completed Dorota Christianson [facility] 12/18/2022 09:10:54 Influenza, MDCK, quadrivalent, PF 04/05/2017 completed Not Available [facility] 0 03:01:57 Past Encounters Encounter ID Performer Location Encounter Start Date Encounter Closed Date Diagnosis/Indication Diagnosis SNOMED-CT Code Diagnosis ICD10 Code Diagnosis Note [id number] Nagi Hernandes MD [facility], [address] [place] [phone] 04/05/2017 14:43:41 04/05/2017 15:30:43 Contact dermatitis 06206443 L25.9 Location right lower eyelid. Most probably the diagnosis. Advised patient to try over-the-c ounter low potency cortisone ointment applicatio n twice daily for next 7 days.Megan douglas is told to call our office back in a week with update Influenza vaccine needed [id number] 106 Z23 [id number] Nagi Hernandes MD [facility], [address] [place] [phone] 04/14/2017 13:08:47 04/14/2017 14:06:51 Contact dermatitis 59224601 L25.9 Location right lower eyelid.Dur ation almost 4 weeks. Failed over-the-c ounter low potency hydrocorti sone. Trial with Lotrisone for 2 weeks. If symptoms persist, I will refer patient to dermatolog ist. Impetigo 58914864 L01.00 Location lower chin. Trial with mupirocin ointment. [id number] FRANSISCA AVENDAÑO NP [facility], [address] [place] [phone] 12/06/2017 08:24:02 12/06/2017 10:12:28 Adult health examination [id number] Z00.00 37 yo healthy female. CV risk: BP normotensi ve BMI in normal range Nonsmoker Lipids pending Contracept ion: OCP Counseled to use sunscreen and insect repellent, safe driving, importance of taking folic acid prior to and benefits of breast feeding discussed Immunizati ons: UTD checking on Tdap healthy diet and importance of exercise discussed alcohol in moderation discussed depression : 0/ [id number] [facility] [address] [place] [address] 07/22/2018 09:53:29 07/22/2018 10:32:43 Atopic dermatitis 26129869 L20.9 Exam consistent with atopic dermatitis . Advised patient to discontinu e homemade face scrubs and trial Cetaphil or another nonallerge dorothea-based product as well as the Medrol Dosepak and hydroxyzin e. Patient to return to office if symptoms fail to improve or worsen and will refer to dermatolog ist. Patient states understand ing of diallo lovett [id number] [facility], [address] [place] [phone] 07/29/2018 13:59:23 07/29/2018 14:00:32 Atopic dermatitis 55424834 L20.9 Improvemen t of rash but slowly returning. Will provide patient with longer taper steroid, topical if needed as well. If no lasting improvemen t will refer for further eval evaluation and management .. [id number] [facility] [address] [facility] [address] [place] [address] 08/09/2018 13:54:54 08/09/2018 15:17:43 Atopic dermatitis 03551466 L20.9 Patient appears to have atopic dermatitis that is not been responsive to long steroid taper. Will proceed with dermatolog y referral as patient is quite uncomforta ble with burning and irritation due to rash. [id number] [facility] 18 [facility] [address] [place] [address] 12/09/2018 12:32:26 12/09/2018 13:28:41 Adult health examination 066507658 Z00.00 38 yo healthy female. CV risk: BP NORMOTENSI VE BMI in normal range Nonsmoker Lipids Counseled use insect repellent and sunscreen, safe driving Immunizati ons: Up-to-date healthy diet and importance of exercise discussed alcohol in moderation discussed depression :0 contracept ion: OCPPatient does state that she will be moving to [facility] and likely transferri her care. Perioral dermatitis 2387 86186 L71.0 She under the care of Dr. Sascha Welsh. Currently taking minocyclin e with significan t improvemen t of symptoms. Patient has follow-up next week. Health Concerns Section Related Observation LastModified by Organization Detai ls LastModified Time None Recorded Concern Status LastModified by Organization Details LastModified Time None Recorded Advance Directives Directive None Recorded Payers Encounter Date Sequence Insurance Name Policy Number Policy Colindres Covered Member ID Colindres Member ID Guarantor Name 12/06/2017 1 [id number] [facility] 07/22/2018 1 [facility] [id number] [employer] [facility] 07/29/2018 1 [facility] [id number] Nelda Sophia 08/09/[address] [id number] [facility] Sophia 12/09/[address] [place] [address]) [facility] [id number] [facility] Sophia Notes Date Note Type Note Provider Name and Address Organization Details Recorded Time 12/06/2017 text/html Patient presents to office for CPE. Patient had not had the opportunity to have fasting labs done prior to this visit. Patient states only concern for today was outside picking berries and was brushed with 1 of the plants under her nose as well as her chest. Has some mild redness and irritation in both spots. Has been improving over the last several days. Patient states she is otherwise in good health. Sees a MH counselor, participates in yoga and meditation. These [employer] for her Pap smears. Last one completed in October 2017. Patient also received order for mammogram as she will be 38 in the fall. Patient believes she had a Tdap vaccine approximately 3 years ago. Patient will verify that and obtain medical records. FRANSISCA AVENDAÑO NP [address] [place], [phone], [facility] 12/06/2017 09:01:03 07/22/2018 text/html Patient presents to office for sick visit. Patient has developed a rash around her eyes and face. Was previously seen in 2016 and given a combined antifungal and steroid cream. She has tried that but it is not helped. Patient uses many homemade products that include coconut oil, all of oil, sugar, tea tree oil and apple cider vinegar. FRANSISCA AVENDAÑO NP [address] [place], [address], [facility] 07/22/2018 10:37:01 07/29/2018 text/html Patient presents to office for sick visit. Patient was seen on 07-20-18 with severe atopic dermatitis of the face. Patient was placed on Medrol Dosepak and given hydroxyzine at that time. Patient did have some resolution of symptoms although since stopping the Dosepak times 1 day symptoms are returning. She has stopped using all homemade products including coconut oil all of oil sugar and extracts on her face. Has been using Cetaphil and not applying any makeup. Patient does not report rash anywhere else. FRANSISCA AVENDAÑO NP [address] [place], [address], [facility] 07/29/2018 14:27:31 08/09/2018 text/html Patient presents the office with continued rash specifically around eyes and cheeks. Rash is quite pruritic and burning. Patient had been on a Medrol Dosepak with some improvement but return of symptoms once dosepak was discontinued. Patient placed on longer steroid taper over 14 days which discontinues today. Patient has noted over the last several returning of symptoms even worse. Patient never got as much relief on the second steroid taper she did the first. Rashes specifically uncomfortable around her eyes including itching and burning. Patient had discontinued all scrubs and had been using just Cetaphil on her face. FRANSISCA AVENDAÑO NP [address] [place], [address], [facility] 08/09/2018 14:23:59 12/09/2018 text/html Patient presents to office for CPE. Recently had annual EATING DISORDER SPECIALIST exam in October 2018. Had her first mammogram in July 2018. Per patient there were no abnormal findings. Patient recently saw a mining helper for diagnosis of periorbital dermatitis which she has been taking an antibiotic with significant improvement of her symptoms. FRANSISCA AVENDAÑO NP [address] [place], [phone], [facility] 12/09/2018 13:25:45 OBGyn Episode No OBEpisode recorded.
== END 2024-06-09 09:09 | disposition home or self-care (01) ==
LOC: HO.LNP 09:08
PROVIDERS: PCP Family Medicine; Visit Provider Nurse Practitioner Family
DX: R68.89 Other general symptoms and signs (principal); R09.89 Other specified symptoms and signs involving the circulatory and respiratory systems; J01.90 Acute sinusitis, unspecified; B96.89 Other specified bacterial agents as the cause of diseases classified elsewhere; H10.9 Unspecified conjunctivitis
CPT/HCPCS: 0241U

== ENCOUNTER → 2024-06-19 13:36 | Outpatient (BNVA) | payer BC, SELFPAY | PROVIDERS: PCP Hospitalist; Visit Provider Obstetrics & Gynecology ==

== ENCOUNTER 2024-09-26 07:54 | Outpatient (AMB) | payer BC, SELFPAY ==
--- OUTSIDE RECORDS SUMMARY | 2024-09-26 07:57 | XMS_ITS | Data Portability ---
Author Organization [facility] UROLOGY Address [address] [facility] [address] [place] [address] Care Team Providers Care Creative Specialist Name Role Phone NAGI HERNANDES Primary Care Provider [phone] NAGI HERNANDES Referring Provider [phone] Assessment No assessment recorded. Plan of Treatment Reminders Order Date Submit Date Provider Last Modified By Organization Details Last Modified Time Details Appointments None recorded. Lab None recorded. Referral dermatologi st referral - Patient with atopic dermatitis on face resistant to Medrol Dosepak and long prednisone taper. 2018 019 ANGIE Welsh MD, [address] [place] [address], [facility] [address], [place], [address], 9 10:28:35 Procedures None recorded. Surgeries None recorded. Imaging None recorded. Medication Orders triamcinolo ne acetonide 0.1 % topical cream 2018 019 [email or web address] [facility], [address] [place] [address], [address], 9 13:21:56 prednisone 10 mg tablet 2018 019 [email or web address] [facility], [address] [place] [address], [address], 9 14:03:19 hydroxyzine HCl 25 mg tablet 2018 019 [facility], [address] [place] [address], [address], 9 13:21:43 methylpredn isolone 4 mg tablets in a dose pack 2018 Sindi [email or web address] [facility], [address] [place] [address], [address], 9 13:21:49 Patient TargetsNo targets recorded. Patient InstructionsNo instructions recorded. 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 Referring Physician: Fransisca Avendaño, Family Medicine, Encounter Date: 08/09/2018 Results Created Date Observation Date Name Description Value Unit Range Abnormal Flag Note LastModifiedBy Organization Detail LastModifiedTime 12/29/19 18 12/28/2017 lipid panel , serum cholesterol, total 189 mg/dL <200 normal Not Available [facility] [address], [address], 12/28/2017 16:53:14 12/29/19 18 12/28/2017 lipid panel , serum HDL cholesterol 76 mg/dL >50 normal Not Available [facility] [address], [address], 12/28/2017 16:53:14 12/29/19 18 12/28/2017 lipid panel , serum triglyceride s 100 mg/dL <150 normal Not Available [facility] [address], [address], 12/28/2017 16:53:14 12/29/19 18 12/28/2017 lipid panel , serum LDL-choleste rol 93 mg/dL _(sarwat c) normal Refer ence range : <100 Sd able range <100 mg/dL for prima ry preve ntion ; <70 mg/dL for patie nts with CHD or diabe tic patie nts with > or = 2 CHD risk facto rs. LDL-C is now calcu lated using the [facility] n-Hop kins calcu prasad n, which is a valid ated novel metho d garciai demetri kendy r accur acy than the Fried lluvia equat ion in the estim ation of LDL-C . Dayanara valdivia SS et al. ELISHA. 2013; 310(1 9): 2061- 2068 (http ://ed ucati on.[employer] marlonAnam Mobile. Handprint/f aq/FA Q164) Not Available [facility] [place] [facility] [address], [place], [address], 12/28/2017 16:53:14 12/29/19 18 12/28/2017 lipid panel , serum chol/HDLC ratio 2.5 (calc ) <5.0 normal Not Available [facility] [place] [facility] [address], [place], [address], 12/28/2017 16:53:14 12/29/19 18 12/28/2017 lipid panel , serum non HDL cholesterol 113 mg/dL _(sarwat c) <130 normal For patie nts with diabe sam plus 1 major ASCVD risk facto r, treat ing to a non-H DL-C goal of <100 mg/dL (LDL- C of <70 mg/dL ) is jeanette rouse n. Not Available [facility] [place] [facility] [address], [place], [address], 12/28/2017 16:53:14 12/29/19 18 12/28/2017 CMP, serum or plasm a glucose 86 mg/dL 65-99 normal Fasti ng refer ence inter marta Not Available [facility] [place] [facility] [address], [place], [address], 12/28/2017 16:53:15 12/29/19 18 12/28/2017 CMP, serum or plasm a urea nitrogen (BUN) 10 mg/dL 7-25 normal Not Available [email or web address] [address], [place], [address], 12/28/2017 16:53:15 12/29/19 18 12/28/2017 CMP, serum or plasm a creatinine 0.78 mg/dL 0.50-1 .10 normal Not Available [facility] [place] [facility] [address] [place], [place], [address], 12/28/2017 16:53:15 12/29/19 18 12/28/2017 CMP, serum or plasm a eGFR non-afr. estonian 96 mL/mi n/1.7 3m2 > or = 60 normal Not Available [facility] [place] [facility] [address] [place], [place], [address], 12/28/2017 16:53:15 12/29/19 18 12/28/2017 CMP, serum or plasm a eGFR 111 mL/mi n/1.7 3m2 > or = 60 normal Not Available [facility] [place] [facility] [address] [place], [place], [address], 12/28/2017 16:53:15 12/29/19 18 12/28/2017 CMP, serum or plasm a BUN/creatini ne ratio NOT APPLIC ABLE (calc ) 6-22 normal Not Available [facility] [place] [facility] [address] [place], [place], [address], 12/28/2017 16:53:15 12/29/19 18 12/28/2017 CMP, serum or plasm a sodium 138 mmol/ L 135-14 6 normal Not Available [facility] [address] [place], [place], [address], 12/28/2017 16:53:15 12/29/19 18 12/28/2017 CMP, serum or plasm a potassium 4.3 mmol/ L 3.5-5. 3 normal Not Available [facility] [address] [place], [place], [address], 12/28/2017 16:53:15 12/29/19 18 12/28/2017 CMP, serum or plasm a chloride 104 mmol/ L 98-110 normal Not Available [facility] [address] [place], [place], [address], 12/28/2017 16:53:15 12/29/19 18 12/28/2017 CMP, serum or plasm a carbon dioxide 25 mmol/ L 20-32 normal Not Available [facility] [address] [place], [place], [address], 12/28/2017 16:53:15 12/29/19 18 12/28/2017 CMP, serum or plasm a calcium 8.9 mg/dL 8.6-10 .2 normal Not Available [facility] [address] [place], [place], [address], 12/28/2017 16:53:15 12/29/19 18 12/28/2017 CMP, serum or plasm a protein, total 6.9 g/dL 6.1-8. 1 normal Not Available [facility] [address] [place], [place], [address], 12/28/2017 16:53:15 12/29/19 18 12/28/2017 CMP, serum or plasm a albumin 4.3 g/dL 3.6-5. 1 normal Not Available [facility] [address] [place], [place], [address], 12/28/2017 16:53:15 12/29/19 18 12/28/2017 CMP, serum or plasm a globulin 2.6 g/dL_ (calc ) 1.9-3. 7 normal Not Available [facility] [address] [place], [place], [address], 12/28/2017 16:53:15 12/29/19 18 12/28/2017 CMP, serum or plasm a albumin/glob ulin ratio 1.7 (calc ) 1.0-2. 5 normal Not Available [facility] [place] [facility] [address] [place], [place], [address], 12/28/2017 16:53:15 12/29/19 18 12/28/2017 CMP, serum or plasm a bilirubin, total 0.5 mg/dL 0.2-1. 2 normal Not Available [facility] [place] [facility] [address] [place], [place], [address], 12/28/2017 16:53:15 12/29/19 18 12/28/2017 CMP, serum or plasm a alkaline phosphatase 35 U/L 33-115 normal Not Available [facility] [place] [facility] [address] [place], [place], [address], 12/28/2017 16:53:15 12/29/19 18 12/28/2017 CMP, serum or plasm a AST 12 U/L 10-30 normal Not Available [facility] [place] [facility] [address] [place], [place], [address], 12/28/2017 16:53:15 12/29/19 18 12/28/2017 CMP, serum or plasm a ALT 11 U/L 6-29 normal Not Available [facility] [place] [facility] [address], [place], [address], 12/28/2017 16:53:15 12/29/19 18 12/28/2017 TSH, serum or plasm a TSH w/reflex to FT4 1.15 mIU/L normal Refer ence Range > or = 20 Years 0.40- 4.50 Pregn trenton Range s First trime ster 0.26- 2.66 Secon d trime ster 0.55- 2.73 Third trime ster 0.43- 2.91 Not Available [email or web address] [address] [place], [place], [address], 12/28/2017 17:42:40 08/14/20 18 12/28/2017 vitam in [...] /MS is recom georgette d: order code 43273 (ihsan ents >2yrs ). For more infor jay valdivia on this test, go to: http: //[facility] kimani valdivia.bird stdia gnost ics.c om/fa q/FAQ 163 (This link is being provi ded for infor jay nal/e ducat ional purpo ses only. ) Not Available [facility] [address], [address], 12/28/2017 19:25:13 12/29/19 18 12/28/2017 CBC w/ auto diff white blood cell count 6.6 thous and/u L 3.8-10 .8 normal Not Available [facility] [address], [place], [address], 12/28/2017 19:25:13 12/29/19 18 12/28/2017 CBC w/ auto diff red blood cell count 4.38 rachell on/uL 3.80-5 .10 normal Not Available [email or web address] [address], [place], [address], 12/28/2017 19:25:13 12/29/19 18 12/28/2017 CBC w/ auto diff hemoglobin 12.9 g/dL 11.7-1 5.5 normal Not Available [facility] [place] [facility] [address], [place], [address], 12/28/2017 19:25:13 12/29/19 18 12/28/2017 CBC w/ auto diff hematocrit 38.9 % 35.0-4 5.0 normal Not Available [facility] [place] [facility] [address], [place], [address], 12/28/2017 19:25:13 12/29/19 18 12/28/2017 CBC w/ auto diff MCV 88.8 fL 80.0-1 00.0 normal Not Available [facility] [place] [facility] [address], [place], [address], 12/28/2017 19:25:13 12/29/19 18 12/28/2017 CBC w/ auto diff MCH 29.5 pg 27.0-3 3.0 normal Not Available [facility] [place] [facility] [address], [place], [address], 12/28/2017 19:25:13 12/29/19 18 12/28/2017 CBC w/ auto diff MCHC 33.2 g/dL 32.0-3 6.0 normal Not Available [facility] [place] [facility] [address], [place], [address], 12/28/2017 19:25:13 12/29/19 18 12/28/2017 CBC w/ auto diff RDW 12.7 % 11.0-1 5.0 normal Not Available [facility] [place] [facility] [address], [place], [address], 12/28/2017 19:25:13 12/29/19 18 12/28/2017 CBC w/ auto diff platelet count 288 thous and/u L 140-40 0 normal Not Available [facility] [place] [facility] [address], [place], [address], 12/28/2017 19:25:13 12/29/19 18 12/28/2017 CBC w/ auto diff MPV 9.9 fL 7.5-12 .5 normal Not Available [facility] [place] [facility] [address], [place], [address], 12/28/2017 19:25:13 12/29/19 18 12/28/2017 CBC w/ auto diff absolute neutrophils 3650 cells /uL 1500-7 800 normal Not Available [facility] [place] [facility] [address], [place], [address], 12/28/2017 19:25:13 12/29/19 18 12/28/2017 CBC w/ auto diff absolute lymphocytes 2264 cells /uL 850-39 00 normal Not Available [facility] [place] [facility] [address], [place], [address], 12/28/2017 19:25:13 12/29/19 18 12/28/2017 CBC w/ auto diff absolute monocytes 561 cells /uL 200-95 0 normal Not Available [facility] [place] [facility] [address], [place], [address], 12/28/2017 19:25:13 12/29/19 18 12/28/2017 CBC w/ auto diff absolute eosinophils 73 cells /uL 15-500 normal Not Available [facility] [place] [facility] [address], [place], [address], 12/28/2017 19:25:13 12/29/19 18 12/28/2017 CBC w/ auto diff absolute basophils 53 cells /uL 0-200 normal Not Available [facility] [place] [facility] [address], [place], [address], 12/28/2017 19:25:13 12/29/19 18 12/28/2017 CBC w/ auto diff neutrophils 55.3 % normal Not Available [facility] [place] [facility] [address], [place], [address], 12/28/2017 19:25:13 12/29/19 18 12/28/2017 CBC w/ auto diff lymphocytes 34.3 % normal Not Available [facility] [place] [facility] [address], [place], [address], 12/28/2017 19:25:13 12/29/19 18 12/28/2017 CBC w/ auto diff monocytes 8.5 % normal Not Available [facility] [place] [facility] [address], [place], [address], 12/28/2017 19:25:13 12/29/19 18 12/28/2017 CBC w/ auto diff eosinophils 1.1 % normal Not Available [facility] [place] [facility] [address], [place], [address], 12/28/2017 19:25:13 12/29/19 18 12/28/2017 CBC w/ auto diff basophils 0.8 % normal Not Available [facility] [place] [facility] [address], [place], [address], 12/28/2017 19:25:13 12/03/19 19 12/02/2018 lipid panel , serum cholesterol, total 190 mg/dL <200 normal Not Available [facility] [place] [facility] [address], [place], [address], 12/02/2018 19:56:28 12/03/1912/02/2018 lipid panel , serum HDL cholesterol 74 mg/dL >50 normal Not Available [facility] [place] [facility] [address] [place], [place], [address], 12/02/2018 19:56:28 12/03/1912/02/2018 lipid panel , serum triglyceride s 96 mg/dL <150 normal Not Available [facility] [place] [facility] [address] [place], [place], [address], 12/02/2018 19:56:28 12/03/1912/02/2018 lipid panel , serum [...] 310(1 9): 2061- 2068 (http ://ed ucati on.[employer]. Handprint/f aq/FA Q164) Not Available [facility] [place] [facility] [address] [place], [place], [address], 12/02/2018 19:56:28 12/03/1912/02/2018 lipid panel , serum chol/HDLC ratio 2.6 (calc ) <5.0 normal Not Available [facility] [place] [facility] [address], [place], [address], 12/02/2018 19:56:28 12/03/1912/02/2018 lipid panel , serum non HDL cholesterol 116 mg/dL _(sarwat c) <130 normal For patie nts with diabe sam plus 1 major ASCVD risk facto r, treat ing to a non-H DL-C goal of <100 mg/dL (LDL- C of <70 mg/dL ) is jeanette britto n. Not Available [facility] [place] [facility] [address], [place], [address], 12/02/2018 19:56:28 12/03/1912/02/2018 CMP, serum or plasm a glucose 79 mg/dL 65-99 normal Fasti ng refer ence inter marta Not Available [facility] [address] [place], [place], [address], 12/02/2018 19:56:29 12/03/1912/02/2018 CMP, serum or plasm a urea nitrogen (BUN) 17 mg/dL 7-25 normal Not Available [facility] [address] [place], [place], [address], 12/02/2018 19:56:29 12/03/1912/02/2018 CMP, serum or plasm a creatinine 0.83 mg/dL 0.50-1 .10 normal Not Available [facility] [address] [place], [place], [address], 12/02/2018 19:56:29 12/03/1912/02/2018 CMP, serum or plasm a eGFR non-afr. estonian 88 mL/mi n/1.7 3m2 > or = 60 normal Not Available [facility] [address] [place], [place], [address], 12/02/2018 19:56:29 12/03/1912/02/2018 CMP, serum or plasm a eGFR 102 mL/mi n/1.7 3m2 > or = 60 normal Not Available [facility] [address] [place], [place], [address], 12/02/2018 19:56:29 12/03/1912/02/2018 CMP, serum or plasm a BUN/creatini ne ratio NOT APPLIC ABLE (calc ) 6-22 normal Not Available [facility] [address] [place] [address] [place], [place], [address], 12/02/2018 19:56:29 12/03/1912/02/2018 CMP, serum or plasm a sodium 139 mmol/ L 135-14 6 normal Not Available [facility] [address], [address], 12/02/2018 19:56:29 12/03/1912/02/2018 CMP, serum or plasm a potassium 3.9 mmol/ L 3.5-5. 3 normal Not Available [facility] [address], [address], 12/02/2018 19:56:29 12/03/1912/02/2018 CMP, serum or plasm a chloride 105 mmol/ L 98-110 normal Not Available [facility] [address], [place], [address], 12/02/2018 19:56:29 12/03/1912/02/2018 CMP, serum or plasm a carbon dioxide 24 mmol/ L 20-32 normal Not Available [facility] [address], [address], 12/02/2018 19:56:29 12/03/1912/02/2018 CMP, serum or plasm a calcium 8.7 mg/dL 8.6-10 .2 normal Not Available [facility] [address], [address], 12/02/2018 19:56:29 12/03/1912/02/2018 CMP, serum or plasm a protein, total 6.4 g/dL 6.1-8. 1 normal Not Available [facility] [address], [address], 12/02/2018 19:56:29 12/03/1912/02/2018 CMP, serum or plasm a albumin 4.0 g/dL 3.6-5. 1 normal Not Available [facility] [address] [place], [place], [address], 12/02/2018 19:56:29 12/03/1912/02/2018 CMP, serum or plasm a globulin 2.4 g/dL_ (calc ) 1.9-3. 7 normal Not Available [facility] [address] [place], [place], [address], 12/02/2018 19:56:29 12/03/1912/02/2018 CMP, serum or plasm a albumin/glob ulin ratio 1.7 (calc ) 1.0-2. 5 normal Not Available [facility] [address] [place], [place], [address], 12/02/2018 19:56:29 12/03/1912/02/2018 CMP, serum or plasm a bilirubin, total 0.6 mg/dL 0.2-1. 2 normal Not Available [facility] [address] [place], [place], [address], 12/02/2018 19:56:29 12/03/1912/02/2018 CMP, serum or plasm a alkaline phosphatase 35 U/L 33-115 normal Not Available [facility] [address] [place], [place], [address], 12/02/2018 19:56:29 12/03/1912/02/2018 CMP, serum or plasm a AST 12 U/L 10-30 normal Not Available [facility] [address] [place], [place], [address], 12/02/2018 19:56:29 12/03/1912/02/2018 CMP, serum or plasm a ALT 9 U/L 6-29 normal Not Available [facility] [address] [place], [place], [address], 12/02/2018 19:56:29 12/03/1912/02/2018 CBC w/ auto diff white blood cell count 6.1 thous and/u L 3.8-10 .8 normal Not Available [facility] [place] [facility] [address], [place], [address], 12/02/2018 20:48:48 12/03/1912/02/2018 CBC w/ auto diff red blood cell count 4.05 rachell on/uL 3.80-5 .10 normal Not Available [facility] [place] [facility] [address], [place], [address], 12/02/2018 20:48:48 12/03/1912/02/2018 CBC w/ auto diff hemoglobin 11.9 g/dL 11.7-1 5.5 normal Not Available [facility] [place] [facility] [address], [place], [address], 12/02/2018 20:48:48 12/03/1912/02/2018 CBC w/ auto diff hematocrit 36.3 % 35.0-4 5.0 normal Not Available [facility] [place] [facility] [address], [place], [address], 12/02/2018 20:48:48 12/03/1912/02/2018 CBC w/ auto diff MCV 89.6 fL 80.0-1 00.0 normal Not Available [facility] [place] [facility] [address], [place], [address], 12/02/2018 20:48:48 12/03/1912/02/2018 CBC w/ auto diff MCH 29.4 pg 27.0-3 3.0 normal Not Available [facility] [place] [facility] [address], [place], [address], 12/02/2018 20:48:48 12/03/1912/02/2018 CBC w/ auto diff MCHC 32.8 g/dL 32.0-3 6.0 normal Not Available [facility] [place] [facility] [address], [place], [address], 12/02/2018 20:48:48 12/03/1912/02/2018 CBC w/ auto diff RDW 12.9 % 11.0-1 5.0 normal Not Available [facility] [place] [facility] [address], [place], [address], 12/02/2018 20:48:48 12/03/1912/02/2018 CBC w/ auto diff platelet count 239 thous and/u L 140-40 0 normal Not Available [facility] [place] [facility] [address], [place], [address], 12/02/2018 20:48:48 12/03/19 19 12/02/2018 CBC w/ auto diff MPV 10.4 fL 7.5-12 .5 normal Not Available [facility] [place] [facility] [address], [place], [address], 12/02/2018 20:48:48 12/03/1912/02/2018 CBC w/ auto diff absolute neutrophils 3318 cells /uL 1500-7 800 normal Not Available [facility] [place] [facility] [address], [place], [address], 12/02/2018 20:48:48 12/03/1912/02/2018 CBC w/ auto diff absolute lymphocytes 2166 cells /uL 850-39 00 normal Not Available [facility] [place] [facility] [address], [place], [address], 12/02/2018 20:48:48 12/03/1912/02/2018 CBC w/ auto diff absolute monocytes 464 cells /uL 200-95 0 normal Not Available [facility] [place] [facility] [address], [place], [address], 12/02/2018 20:48:48 12/03/1912/02/2018 CBC w/ auto diff absolute eosinophils 122 cells /uL 15-500 normal Not Available [facility] [place] [facility] [address], [place], [address], 12/02/2018 20:48:48 12/03/1912/02/2018 CBC w/ auto diff absolute basophils 31 cells /uL 0-200 normal Not Available [facility] [place] [facility] [address], [place], [address], 12/02/2018 20:48:48 12/03/1912/02/2018 CBC w/ auto diff neutrophils 54.4 % normal Not Available [facility] [place] [facility] [address], [place], [address], 12/02/2018 20:48:48 12/03/1912/02/2018 CBC w/ auto diff lymphocytes 35.5 % normal Not Available [facility] [place] [facility] [address], [place], [address], 12/02/2018 20:48:48 12/03/1912/02/2018 CBC w/ auto diff monocytes 7.6 % normal Not Available [facility] [place] [facility] [address], [place], [address], 12/02/2018 20:48:48 12/03/1912/02/2018 CBC w/ auto diff eosinophils 2.0 % normal Not Available [facility] [place] [facility] [address], [place], [address], 12/02/2018 20:48:48 12/03/1912/02/2018 CBC w/ auto diff basophils 0.5 % normal Not Available [facility] [place] [facility] [address], [address], 12/02/2018 20:48:48 12/03/1912/02/2018 TSH, serum or plasm a TSH w/reflex to FT4 0.91 mIU/L normal Refer ence Range > or = 20 Years 0.40- 4.50 Pregn trenton Range s First trime ster 0.26- 2.66 Secon d trime ster 0.55- 2.73 Third trime ster 0.43- 2.91 Not Available [email or web address] [place] [facility] [address], [address], 12/02/2018 22:07:29 12/03/1912/02/2018 vitam in D, 25-hy [...] /MS is recom georgette d: order code 20385 (ihsan ents >2yrs ). For more tadeor jay valdivia on this test, go to: http: //[facility] [employer] gnost ics.c om/fa q/FAQ 163 (This link is being provi ded for infor jay nal/e dennis ional purpo ses only. ) Not Available [email or web address] [place] [facility] [address], [place], [address], 12/02/2018 22:52:27 Result Notes None recorded. Problems Name Problem SNOMED Code Status Onset Date Resolution Date Notes Provider Name and Address Organization Details Recorded Time Contact dermatitis 31810373 Completed 201612/09/2018 FRANSISCA AVENDAÑO NP [address] [place], [address], [facility] 9 12:54:11 Perioral dermatitis 586805133 Active 2018 FRANSISCA AVENDAÑO NP [address] [place], [address], [facility] 9 12:51:05 Problem Notes None recorded. Medical Equipment None Reported. Allergies Allergen ID Allergen Name Allergen Category Reaction Reaction Severity Criticality Documentation Date Start Date Code Code System Note Provider Name and Address Organization Details Recorded Time 940072 Product containin g penicilli n (product) medicatio n anaphylax is Not available Not available 04/05/2017 [address] [facility] 7 15:00:59 [id number] cat dander environme nt eye redness Not available Not available 12/06/[address] [facility] 8 08:44:50 Medications Name Sig Start [...] t Available Vitals Date Recorded Body height Body mass index (BMI) Body weight Heart rate Systolic blood pressure Diastolic blood pressure Provider Name and Address Organization Details Last Updated DateTime 8 162.56 cm 21.6 kg/m2 03551.6 4 g 70 /min 100 mm[Hg] 60 mm[Hg] Jennifer Costa [facility] 8 08:43:00 Date Recorded Body height Body mass index (BMI) Body weight Heart rate Oxygen saturation Oxygen saturation in Arterial blood by Pulse oximetry Systolic blood pressure Diastolic blood pressure Provider Name and Address Organization Details Last Updated DateTime 9 162.56 cm 22.5 kg/m2 93658.6 g 68 /min 98 % 98 % 98 mm[Hg] 60 mm[Hg] Jennifer Costa [facility] 9 10:10:36 Date Recorded Body height Body mass index (BMI) Body weight Heart rate Oxygen saturation Oxygen saturation in Arterial blood by Pulse oximetry Systolic blood pressure Diastolic blood pressure Provider Name and Address Organization Details Last Updated DateTime 9 162.56 cm 22.8 kg/m2 01395.7 9 g 99 /min 63 % 63 % 100 mm[Hg] 60 mm[Hg] Jennifer Costa [facility] 9 14:08:06 Date Recorded Body height Body mass index (BMI) Body weight Heart rate Oxygen saturation Oxygen saturation in Arterial blood by Pulse oximetry Systolic blood pressure Diastolic blood pressure Provider Name and Address Organization Details Last Updated DateTime 9 162.56 cm 22.5 kg/m2 13397.6 g 63 /min 99 % 99 % 110 mm[Hg] 60 mm[Hg] Jennifer Costa [facility] 9 14:06:01 Date Recorded Body height Body mass index (BMI) Body weight Heart rate Oxygen saturation Oxygen saturation in Arterial blood by Pulse oximetry Systolic blood pressure Diastolic blood pressure Provider Name and Address Organization Details Last Updated DateTime 9 163.2 cm 22.4 kg/m2 09374.3 5 g 60 /min 98 % 98 % 106 mm[Hg] 68 mm[Hg] Sue Flores [facility] 9 12:44:29 Social History Question Answer Notes LastModified by Organizat ion Details LastModified Time Tobacco Smoking Status Never Smoker Kenyatta Silveira tej, [facility] 04/05/2017 15:00:22 Auto Related Injury? No Information not available 04/05/2017 What Is Your Level Of Caffeine Consumption? Occasional Information not available 04/05/2017 What Type Of Diet Are You Following? GLUTENFREE [email or web address] Information not available 12/06/2017 Education Post Graduate Information not available 04/05/2017 Are There Any Guns Present In Your Home? No Information not available 04/05/2017 Do You Use Insect Repellent Routinely? Yes Information not available 04/05/2017 Live Alone Or With Others? With Others Information not available 04/05/2017 Were You Hospitalized Related To Your Condition Recently? 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 Heavy Information not available 04/05/2017 Mental Status None recorded. Family History Relationship Description Onset Age of this Age Resolved Age Notes LastModified by Organization Details LastModified Time Father Hypertensive disorder [email or web address] Not available 2016 15:03:34 Mother Hypertensive disorder [email or web address] Not available 2016 15:03:43 Medical History Condition Response defects or inherited diseases N arthritis N gout N asthma N glaucoma N [...] Immunizations Vaccine Type Date Status Note Provider Nam e and Address Organization Details Recorded Time Tdap 08/27/2014 completed Dorota burnham [facility] 12/18/2022 09:10:54 Influenza, MDCK, quadrivalent, PF 04/05/2017 completed Not Available [facility] 0 03:01:57 Past Encounters Encounter ID Performer Location Encounter Start Date Encounter Closed Date Diagnosis/Indication Diagnosis SNOMED-CT Code Diagnosis ICD10 Code Diagnosis Note [id number] Nagi Hernandes MD [facility] [address] [place] [address] 04/05/2017 14:43:41 04/05/2017 15:30:43 Contact dermatitis 78099968 L25.9 Location right lower eyelid. Most probably the diagnosis. Advised patient to try over-the-c ounter low potency cortisone ointment applicatio n twice daily for next 7 days.Megan douglas is told to call our office back in a week with update Influenza vaccine needed [id number] 106 Z23 [id number] Nagi Hernandes MD [facility] [address] [facility], [address] [place] [address] 04/14/2017 13:08:47 04/14/2017 14:06:51 Contact dermatitis 52002566 L25.9 Location right lower eyelid.Dur ation almost 4 weeks. Failed over-the-c ounter low potency hydrocorti sone. Trial with Lotrisone for 2 weeks. If symptoms persist, I will refer patient to dermatolog ist. Impetigo 15267042 L01.00 Location lower chin. Trial with mupirocin ointment. [id number] Nagi Hernandes MD [facility] [address] [facility], [address] [place] [address] 12/06/2017 08:24:02 12/06/2017 10:12:28 Adult health examination [id number] Z00.00 37 yo healthy female. CV risk: BP normotensi ve BMI in normal range Nonsmoker Lipids pending Contracept ion: OCP Counseled to use sunscreen and insect repellent, safe driving, importance of taking folic acid prior to and benefits of breast feeding discussed Immunizati ons: UTD checking on Tdap healthy diet and importance of exercise discussed alcohol in moderation discussed depression : 0/6 [id number] Nagi Hernandes MD [facility] [address] [facility], [address] [place] [address] 07/22/2018 09:53:29 07/22/2018 10:32:43 Atopic dermatitis 41113886 L20.9 Exam consistent with atopic dermatitis . Advised patient to discontinu e homemade face scrubs and trial Cetaphil or another nonallerge dorothea-based product as well as the Medrol Dosepak and hydroxyzin e. Patient to return to office if symptoms fail to improve or worsen and will refer to dermatolog ist. Patient states understand ing of instructgordo lovett [id number] Nagi Hernandes MD [facility] [address] [facility] [place] [address] 07/29/2018 13:59:23 07/29/2018 14:00:32 Atopic dermatitis 09766205 L20.9 Improvemen t of rash but slowly returning. Will provide patient with longer taper steroid, topical if needed as well. If no lasting improvemen t will refer for further eval evaluation and management .. [id number] Nagi Hernandes MD [facility] [address] [facility], [address] [place] [address] 08/09/2018 13:54:54 08/09/2018 15:17:43 Atopic dermatitis 41051698 L20.9 Patient appears to have atopic dermatitis that is not been responsive to long steroid taper. Will proceed with dermatolog y referral as patient is quite uncomforta ble with burning and irritation due to rash. [id number] Nagi Hernandes MD [facility] [address] [facility], [address] [place] [phone] 12/09/2018 12:32:26 12/09/2018 13:28:41 Adult health examination [id number] Z00.00 38 yo healthy female. CV risk: BP NORMOTENSI VE BMI in normal range Nonsmoker Lipids Counseled use insect repellent and sunscreen, safe driving Immunizati ons: Up-to-date healthy diet and importance of exercise discussed alcohol in moderation discussed depression :0/6 contracept ion: OCPPatient does state that she will be moving to [facility] and likely transferri her care. Perioral dermatitis 4167 54821 L71.0 She under the care of Dr. Sascha Welsh. Currently taking minocyclin e with significan t improvemen t of symptoms. Patient has follow-up next week. Health Concerns Section Related Observation LastModified by Organization Detai ls LastModified Time None Recorded Concern Status LastModified by Organization Details LastModified Time None Recorded Advance Directives Directive None Recorded Payers Insurance Date Sequence Insurance Name Policy Number Policy Colindres Covered Member ID Colindres Member ID Guarantor Name 11/29/2017 1 [employer] (MEDICAID HMO) Nelda Manuire [id number] Nelda Sophia 12/08/2018 1 [facility] ([facility]) Nelda Manuire [id number] Nelda Sophia Notes Date Note Type Note Provider [...] counselor, participates in yoga and meditation. These FORESTRY AIDE for her Pap smears. Last one completed in October 2017. Patient also received order for mammogram as she will be 38 in the fall. Patient believes she had a Tdap vaccine approximately 3 years ago. Patient will verify that and obtain medical records. FRANSISCA AVENDAÑO NP [address] [place], [address], [facility] 12/06/2017 09:01:03 07/22/2018 text/html Patient presents [...] apple cider vinegar. FRANSISCA AVENDAÑO NP [address] [place], [address], [facility] 07/22/2018 10:37:01 07/29/2018 text/html Patient presents [...] rash anywhere else. FRANSISCA AVENDAÑO NP [address] [place], [address], [facility] 07/29/2018 14:27:31 08/09/2018 text/html Patient presents [...] on her face. FRANSISCA AVENDAÑO NP [address] [place], [address], [facility] 08/09/2018 14:23:59 12/09/2018 text/html Patient presents to office for CPE. 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 Had her first mammogram in July 2018. Per patient there were no abnormal findings. Patient recently saw a grid caster for diagnosis of periorbital dermatitis which she has been taking an antibiotic with significant improvement of her symptoms. FRANSISCA AVENDAÑO NP [address] [place], [address], [facility] 12/09/2018 13:25:45 OBGyn Episode No OBEpisode recorded.
[2024-09-26 07:58] VITALS: BP 110/67; PULSE 63; O2SAT 100; BMI 22.4
--- NOTE | 2024-09-26 07:58 | A.OFFVIS_ITS ---
Vital Signs 09/26/24 07:58 Height 5 ft 5 in Weight 134 lb 14.766 oz BMI 22.4 BP 110/67 Blood Pressure Location Lt brachial Position Sitting Pulse 63 Pulse Source Pulse Oximeter Pulse Oximetry (%) 100 Oxygen Delivery Method Room Air Intake Visit Reasons: [place] screening Intake Note: Pt presents to the office today for a colonoscopy screening. Pt states she has no concerns at this time. Allergies Penicillins Adverse Reaction (Severe, Verified 09/26/24 08:01) Anaphylaxis Cats Allergy (Unknown, Uncoded 09/26/24 08:01) WATERY EYES, PCN Allergy (Unknown, Uncoded 09/26/24 08:01) anaphylaxis Medication List - Last Reconciled 09/26/24 by Ro Babcock CNP norgestrel-ethinyl estradiol 0.3-30 mg-mcg (Low-Ogestrel (28)) 1 tab PO DAILY omega 1-clm-baa-fish oil 1,000 (120-180) mg (Fish Oil) 1 cap PO DAILY HPI HPI [place] screening: Details: Patient is a 44-year-old female without PMH. Referred by PCP for pre colonoscopy screening. Today she reports a history of frequent bowel movements averaging 3-5 times every morning. This pattern has persisted for approximately six years. Prior to this, the patient had 1-2 bowel movements per day. Stools are formed but can occasionally be loose, ranging from type 1 to type 4 on the [place] stool chart. The patient reports straining occasionally, particularly in the afternoon. There is no associated abdominal pain, blood in stools, nausea, vomiting, or fever. Patient reports diet changes have been self-monitored to manage symptoms. Severity is rated mild to moderate and is episodic in nature. 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 Patient denies: fever/chills, n/v, appetite changes, pyrosis, regurgitation,dysphasia, unintentional wt loss, ab pain, or melena/hematochezia. Social hx: Diet: High-fiber diet including kale, tomato, eggs, feta, whole wheat German muffin, fruit, dates, and low sugar intake due to partner?s diabetes. Alcohol/Tobacco/Drug Use: Alcohol - infrequent (~1 glass of wine every couple of months), no drug use, no tobacco use reported. 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 - family hx as below -denies personal hx of CA -denies significant cardiopulmonary history -tolerated anesthesia in the past without difficulty. [facility] Medical History (Updated 09/26/24 @ 08:40 by Ro Babcock CNP) Constipation Surgical History Hx of LASIK Social History Housing: House Alcohol intake: current Alcohol intake frequency: holidays/special occasions only Alcohol type: wine Patient Tobacco Use Status: Never used Tobacco e-Cigarette/Vaping Use: Never Used Second Hand Smoke Exposure: No service: No Current occupational status: employed Current occupational exposures/hazards: No Cognitive needs: No Hearing needs: No Vision needs: No Female Reproductive History Menstrual Age of Menarche: 9 Review of Systems Const Reports as per HPI ENT Reports as per HPI Card Reports as per HPI Resp Reports as per HPI GI Reports as per HPI Reports as per HPI Physical Exam Vital Signs: Last Vital Signs Pulse 63 09/26/24 07:58 BP 110/67 09/26/24 07:58 Pulse Ox 100 09/26/24 07:58 Oxygen Delivery Method Room Air 09/26/24 07:58 BMI result Body Mass Index 22.4 Const General: healthy appearing, no acute distress and well developed Nutritional Appearance: well nourished Orientation/consciousness: patient oriented x3 HEENT Head: Yes normal to inspection, Yes normocephalic and Yes atraumatic Face and sinus: Yes normal facial exam Eyes General: appearance normal, both eyes and all related structures Neck Neck: Yes normal visual inspection Resp Effort & Inspection: normal respiratory effort, able to speak in complete sentences, no tracheal deviation and symmetric chest movement Auscultation: clear to auscultation bilaterally Cardio Jugular venous distension: no JVD Rate: regular rate Rhythm: regular rhythm Heart sounds: S1 normal heart sound present, S2 normal heart sound present, no gallops and no murmurs GI Inspection: Yes normal to inspection and No distended Palpation (GI): Soft to palpation, not firm, nontender and No hepatosplenomegaly present Auscultation: normal bowel sounds Neuro General: patient oriented x3 Gait exam (Neuro): Normal gait present Psych Appearance: grossly normal Mental Status: mental status grossly normal Speech and movement: Normal speech and movement present Affect: normal affect Attitude: cooperative Thought process: Normal thought process present Thought content: Normal thought content present Insight: Good insight present (Psych) Judgement: Good judgement present (Psych) Results Reviewed Results Reviewed: Laboratory Tests Laboratory Tests 01/12/24 07:52 Sodium 140 Potassium 4.1 Chloride 108 Carbon Dioxide 26 Anion Gap 10 L BUN 12 Creatinine 0.75 Estimated GFR > 60 Fasting Glucose 86 Calcium 8.7 Total Bilirubin 0.4 AST 15 ALT 12 Alkaline Phosphatase 29 L Total Protein 6.5 Albumin 3.9 01/12/24 07:52 TSH 0.82 Assessment & Plan Assessment & Plan (1) Constipation: Code(s): K59.00 - Constipation, unspecified Category: Medical Qualifiers: Constipation type: unspecified constipation type Qualified Code(s): K59.00 - Constipation, unspecified Plan: Mild and intermittent. Symptoms not entirely consistent with IBS. Electrolytes and TSH within normal limits upon last collection (see above). We discussed pharmacological management to help with occasional hard stools. However, Nelda declined and would like to continue with current lifestyle modifications. Advised she can trial ofon-wvh-tsnquee MiraLax as needed if desired. Reinforced lifestyle modifications to promote regularity: -higher fiber diet, examples provided -adequate hydration with water -150 minutes of moderate intensity exercise per week (2) Screening for colon cancer: Code(s): Z12.11 - Encounter for screening for malignant neoplasm of colon Category: Medical Plan: Due for index screening colonoscopy. Diagnostic Tests: Prescriptions for laxative tablets and Miralax sent to pharmacy; instructions for Gatorade purchase and clear liquid diet given. Patient educated on procedure preparation, including avoiding certain foods and ensuring clear liquid intake. Advised on necessity for ride post-procedure due to sedation. Plan Shared decision making to follow-up as needed. Time: I spent a total of 30 minutes on the date of encounter which includes: Preparing to see the patient (reviewed previous documentation, test results and medical history) Performing a medically appropriate exam and/or evaluation Ordering medications, tests, and procedures Documenting clinical information in the health record Medications: New bisacodyl Take four tablets once for 1 day per colonoscopy instructions 5 mg PO ONCE 1 day 4 tabs 0RF polyethylene glycol 3350 (Miralax) per colonoscopy prep instructions 238 grams PO ONCE 238 grams 0RF Coding Level of Care Code New Pt New Pt Level 3 (65074) Patient Type New Diagnoses Constipation, unspecified constipation type K59.00 Constipation type: unspecified constipation type Screening for colon cancer Z12.11
== END 2024-09-26 08:51 | disposition home or self-care (01) ==
LOC: HO.HGI 07:55
PROVIDERS: PCP Family Medicine; Visit Provider Nurse Practitioner Family
DX: Z01.818 Encounter for other preprocedural examination (principal); Z12.11 Encounter for screening for malignant neoplasm of colon; K59.00 Constipation, unspecified
CPT/HCPCS: S0285

== ENCOUNTER 2024-11-08 09:27 | Day surgery (SDC) | payer BC, SELFPAY ==
--- OUTSIDE RECORDS SUMMARY | 2024-10-30 15:10 | XMS_ITS | Data Portability ---
Author Organization [facility] UROLOGY Address [address] [facility] [address] [place] [address] Care Team Providers Care Health Education Specialist Name Role Phone NAGI HERNANDES Primary [...] prednisone taper. 2018 019 ANGIE Welsh MD, [address] [place] [address], [facility] [address], [place], [address], 9 10:28:35 Procedures None recorded. Surgeries None recorded. Imaging None recorded. Medication Orders triamcinolo ne acetonide 0.1 % topical cream 2018 019 [email or web address] [facility], [address] [place] [address], [address], 9 13:21:56 prednisone 10 mg tablet 2018 019 [email or web address] [facility], [address] [place] [address], [address], 9 14:03:19 hydroxyzine HCl 25 mg tablet 2018 019 [email or web address] [facility], [address] [place] [address], [address], 9 13:21:43 methylpredn isolone 4 mg tablets in a dose pack 2018 Sindi [email or web address] [facility], [address] [place] [address], [address], 9 13:21:49 Patient TargetsNo targets recorded. Patient InstructionsNo instructions recorded. 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 Referring Physician: Fransisca Avendaño, Family Medicine, Encounter Date: 08/09/2018 Results Created Date Observation Date Name Description Value Unit Range Abnormal Flag Note LastModifiedBy Organization Detail LastModifiedTime 12/29/19 18 12/28/2017 lipid panel , serum cholesterol, total 189 mg/dL <200 normal Not Available [facility] [address], [address], 12/28/2017 16:53:14 12/29/19 18 12/28/2017 lipid panel , serum HDL cholesterol 76 mg/dL >50 normal Not Available [facility] [address], [address], 12/28/2017 16:53:14 12/29/19 18 12/28/2017 lipid panel , serum triglyceride s 100 mg/dL <150 normal Not Available [facility] [address], [address], 12/28/2017 16:53:14 12/29/19 18 12/28/2017 lipid panel , serum LDL-choleste rol 93 mg/dL _(sarwat c) normal Refer ence range : <100 Sd able range <100 mg/dL for prima ry preve ntion ; <70 mg/dL for patie nts with CHD or diabe tic patie nts with > or = 2 CHD risk facto rs. LDL-C is now calcu lated using the [facility] n-Hop kins calcu prasad n, which is a valid ated novel metho d garciai demetri kendy r accur acy than the Fried lluvia equat ion in the estim ation of LDL-C . Dayanara valdivia SS et al. ELISHA. 2013; 310(1 9): 2061- 2068 (http ://ed ucati on.ecoATM marlonGiftRocket. Cie Games/f aq/FA Q164) Not Available [facility] [place] [facility] [address], [place], [address], 12/28/2017 16:53:14 12/29/19 18 12/28/2017 lipid panel , serum chol/HDLC ratio 2.5 (calc ) <5.0 normal Not Available [facility] [place] [facility] [address], [place], [address], 12/28/2017 16:53:14 12/29/19 18 12/28/2017 lipid panel , serum non HDL cholesterol 113 mg/dL _(sarwat c) <130 normal For patie nts with diabe sam plus 1 major ASCVD risk facto r, treat ing to a non-H DL-C goal of <100 mg/dL (LDL- C of <70 mg/dL ) is jeanette rouse n. Not Available [facility] [place] [facility] [address], [place], [address], 12/28/2017 16:53:14 12/29/19 18 12/28/2017 CMP, serum or plasm a glucose 86 mg/dL 65-99 normal Fasti ng refer ence inter marta Not Available [facility] [place] [facility] [address], [place], [address], 12/28/2017 16:53:15 12/29/19 18 12/28/2017 CMP, serum or plasm a urea nitrogen (BUN) 10 mg/dL 7-25 normal Not Available [facility] [address], [place], [address], 12/28/2017 16:53:15 12/29/19 18 12/28/2017 CMP, serum or plasm a creatinine 0.78 mg/dL 0.50-1 .10 normal Not Available [facility] [place] [facility] [address] [place], [place], [address], 12/28/2017 16:53:15 12/29/19 18 12/28/2017 CMP, serum or plasm a eGFR non-afr. angolan 96 mL/mi n/1.7 3m2 > or = 60 normal Not Available [facility] [place] [facility] [address] [place], [place], [address], 12/28/2017 16:53:15 12/29/19 18 12/28/2017 CMP, serum or plasm a eGFR 111 mL/mi n/1.7 3m2 > or = 60 normal Not Available [facility] [place] [facility] [address] [place], [place], [address], 12/28/2017 16:53:15 12/29/19 18 12/28/2017 CMP, serum or plasm a BUN/creatini ne ratio NOT APPLIC ABLE (calc ) 6-22 normal Not Available [facility] [place] [facility] [address] [place], [place], [address], 12/28/2017 16:53:15 12/29/19 18 12/28/2017 CMP, serum or plasm a sodium 138 mmol/ L 135-14 6 normal Not Available [facility] [address] [place], [place], [address], 12/28/2017 16:53:15 12/29/19 18 12/28/2017 CMP, serum or plasm a potassium 4.3 mmol/ L 3.5-5. 3 normal Not Available [facility] [address] [place], [place], [address], 12/28/2017 16:53:15 12/29/19 18 12/28/2017 CMP, serum or plasm a chloride 104 mmol/ L 98-110 normal Not Available [facility] [address] [place], [place], [address], 12/28/2017 16:53:15 12/29/19 18 12/28/2017 CMP, serum or plasm a carbon dioxide 25 mmol/ L 20-32 normal Not Available [facility] [address] [place], [place], [address], 12/28/2017 16:53:15 12/29/19 18 12/28/2017 CMP, serum or plasm a calcium 8.9 mg/dL 8.6-10 .2 normal Not Available [facility] [address] [place], [place], [address], 12/28/2017 16:53:15 12/29/19 18 12/28/2017 CMP, serum or plasm a protein, total 6.9 g/dL 6.1-8. 1 normal Not Available [facility] [address] [place], [place], [address], 12/28/2017 16:53:15 12/29/19 18 12/28/2017 CMP, serum or plasm a albumin 4.3 g/dL 3.6-5. 1 normal Not Available [facility] [address] [place], [place], [address], 12/28/2017 16:53:15 12/29/19 18 12/28/2017 CMP, serum or plasm a globulin 2.6 g/dL_ (calc ) 1.9-3. 7 normal Not Available [facility] [address] [place], [place], [address], 12/28/2017 16:53:15 12/29/19 18 12/28/2017 CMP, serum or plasm a albumin/glob ulin ratio 1.7 (calc ) 1.0-2. 5 normal Not Available [facility] [place] [facility] [address] [place], [place], [address], 12/28/2017 16:53:15 12/29/19 18 12/28/2017 CMP, serum or plasm a bilirubin, total 0.5 mg/dL 0.2-1. 2 normal Not Available [facility] [place] [facility] [address] [place], [place], [address], 12/28/2017 16:53:15 12/29/19 18 12/28/2017 CMP, serum or plasm a alkaline phosphatase 35 U/L 33-115 normal Not Available [facility] [place] [facility] [address] [place], [place], [address], 12/28/2017 16:53:15 12/29/19 18 12/28/2017 CMP, serum or plasm a AST 12 U/L 10-30 normal Not Available [facility] [place] [facility] [address] [place], [place], [address], 12/28/2017 16:53:15 12/29/19 18 12/28/2017 CMP, serum or plasm a ALT 11 U/L 6-29 normal Not Available [facility] [place] [facility] [address], [place], [address], 12/28/2017 16:53:15 12/29/19 18 12/28/2017 TSH, serum or plasm a TSH w/reflex to FT4 1.15 mIU/L normal Refer ence Range > or = 20 Years 0.40- 4.50 Pregn trenton Range s First trime ster 0.26- 2.66 Secon d trime ster 0.55- 2.73 Third trime ster 0.43- 2.91 Not Available [facility] [address] [place], [place], [address], 12/28/2017 17:42:40 08/14/20 18 12/28/2017 vitam in [...] /MS is recom georgette d: order code 59697 (ihsan ents >2yrs ). For more infor jay valdivia on this test, go to: http: //[facility] kimani valdivia.bird stdia gnost ics.c om/fa q/FAQ 163 (This link is being provi ded for infor jay nal/e ducat ional purpo ses only. ) Not Available [facility] [address], [address], 12/28/2017 19:25:13 12/29/19 18 12/28/2017 CBC w/ auto diff white blood cell count 6.6 thous and/u L 3.8-10 .8 normal Not Available [facility] [address], [place], [address], 12/28/2017 19:25:13 12/29/19 18 12/28/2017 CBC w/ auto diff red blood cell count 4.38 rachell on/uL 3.80-5 .10 normal Not Available [facility] [address], [place], [address], 12/28/2017 19:25:13 12/29/19 18 12/28/2017 CBC w/ auto diff hemoglobin 12.9 g/dL 11.7-1 5.5 normal Not Available [facility] [place] [facility] [address], [place], [address], 12/28/2017 19:25:13 12/29/19 18 12/28/2017 CBC w/ auto diff hematocrit 38.9 % 35.0-4 5.0 normal Not Available [facility] [place] [facility] [address], [place], [address], 12/28/2017 19:25:13 12/29/19 18 12/28/2017 CBC w/ auto diff MCV 88.8 fL 80.0-1 00.0 normal Not Available [facility] [place] [facility] [address], [place], [address], 12/28/2017 19:25:13 12/29/19 18 12/28/2017 CBC w/ auto diff MCH 29.5 pg 27.0-3 3.0 normal Not Available [facility] [place] [facility] [address], [place], [address], 12/28/2017 19:25:13 12/29/19 18 12/28/2017 CBC w/ auto diff MCHC 33.2 g/dL 32.0-3 6.0 normal Not Available [facility] [place] [facility] [address], [place], [address], 12/28/2017 19:25:13 12/29/19 18 12/28/2017 CBC w/ auto diff RDW 12.7 % 11.0-1 5.0 normal Not Available [facility] [place] [facility] [address], [place], [address], 12/28/2017 19:25:13 12/29/19 18 12/28/2017 CBC w/ auto diff platelet count 288 thous and/u L 140-40 0 normal Not Available [facility] [place] [facility] [address], [place], [address], 12/28/2017 19:25:13 12/29/19 18 12/28/2017 CBC w/ auto diff MPV 9.9 fL 7.5-12 .5 normal Not Available [facility] [place] [facility] [address], [place], [address], 12/28/2017 19:25:13 12/29/19 18 12/28/2017 CBC w/ auto diff absolute neutrophils 3650 cells /uL 1500-7 800 normal Not Available [facility] [place] [facility] [address], [place], [address], 12/28/2017 19:25:13 12/29/19 18 12/28/2017 CBC w/ auto diff absolute lymphocytes 2264 cells /uL 850-39 00 normal Not Available [facility] [place] [facility] [address], [place], [address], 12/28/2017 19:25:13 12/29/19 18 12/28/2017 CBC w/ auto diff absolute monocytes 561 cells /uL 200-95 0 normal Not Available [facility] [place] [facility] [address], [place], [address], 12/28/2017 19:25:13 12/29/19 18 12/28/2017 CBC w/ auto diff absolute eosinophils 73 cells /uL 15-500 normal Not Available [facility] [place] [facility] [address], [place], [address], 12/28/2017 19:25:13 12/29/19 18 12/28/2017 CBC w/ auto diff absolute basophils 53 cells /uL 0-200 normal Not Available [facility] [place] [facility] [address], [place], [address], 12/28/2017 19:25:13 12/29/19 18 12/28/2017 CBC w/ auto diff neutrophils 55.3 % normal Not Available [facility] [place] [facility] [address], [place], [address], 12/28/2017 19:25:13 12/29/19 18 12/28/2017 CBC w/ auto diff lymphocytes 34.3 % normal Not Available [facility] [place] [facility] [address], [place], [address], 12/28/2017 19:25:13 12/29/19 18 12/28/2017 CBC w/ auto diff monocytes 8.5 % normal Not Available [facility] [place] [facility] [address], [place], [address], 12/28/2017 19:25:13 12/29/19 18 12/28/2017 CBC w/ auto diff eosinophils 1.1 % normal Not Available [facility] [place] [facility] [address], [place], [address], 12/28/2017 19:25:13 12/29/19 18 12/28/2017 CBC w/ auto diff basophils 0.8 % normal Not Available [facility] [place] [facility] [address], [place], [address], 12/28/2017 19:25:13 12/03/19 19 12/02/2018 lipid panel , serum cholesterol, total 190 mg/dL <200 normal Not Available [facility] [place] [facility] [address], [place], [address], 12/02/2018 19:56:28 12/03/1912/02/2018 lipid panel , serum HDL cholesterol 74 mg/dL >50 normal Not Available [facility] [place] [facility] [address] [place], [place], [address], 12/02/2018 19:56:28 12/03/1912/02/2018 lipid panel , serum triglyceride s 96 mg/dL <150 normal Not Available [facility] [place] [facility] [address] [place], [place], [address], 12/02/2018 19:56:28 12/03/1912/02/2018 lipid panel , serum [...] 310(1 9): 2061- 2068 (http ://ed ucati on.ecoATM marlonGiftRocket. Cie Games/f aq/FA Q164) Not Available [facility] [place] [facility] [address] [place], [place], [address], 12/02/2018 19:56:28 12/03/1912/02/2018 lipid panel , serum chol/HDLC ratio 2.6 (calc ) <5.0 normal Not Available [facility] [place] [facility] [address], [place], [address], 12/02/2018 19:56:28 12/03/1912/02/2018 lipid panel , serum non HDL cholesterol 116 mg/dL _(sarwat c) <130 normal For patie nts with diabe sam plus 1 major ASCVD risk facto r, treat ing to a non-H DL-C goal of <100 mg/dL (LDL- C of <70 mg/dL ) is jeanette britto n. Not Available [facility] [place] [facility] [address], [place], [address], 12/02/2018 19:56:28 12/03/1912/02/2018 CMP, serum or plasm a glucose 79 mg/dL 65-99 normal Fasti ng refer ence inter marta Not Available [facility] [address] [place], [place], [address], 12/02/2018 19:56:29 12/03/1912/02/2018 CMP, serum or plasm a urea nitrogen (BUN) 17 mg/dL 7-25 normal Not Available [facility] [address] [place], [place], [address], 12/02/2018 19:56:29 12/03/1912/02/2018 CMP, serum or plasm a creatinine 0.83 mg/dL 0.50-1 .10 normal Not Available [facility] [address] [place], [place], [address], 12/02/2018 19:56:29 12/03/1912/02/2018 CMP, serum or plasm a eGFR non-afr. angolan 88 mL/mi n/1.7 3m2 > or = 60 normal Not Available [facility] [address] [place], [place], [address], 12/02/2018 19:56:29 12/03/1912/02/2018 CMP, serum or plasm a eGFR 102 mL/mi n/1.7 3m2 > or = 60 normal Not Available [facility] [address] [place], [place], [address], 12/02/2018 19:56:29 12/03/1912/02/2018 CMP, serum or plasm a BUN/creatini ne ratio NOT APPLIC ABLE (calc ) 6-22 normal Not Available [facility] [address] [place] [address] [place], [place], [address], 12/02/2018 19:56:29 12/03/1912/02/2018 CMP, serum or plasm a sodium 139 mmol/ L 135-14 6 normal Not Available [facility] [address], [address], 12/02/2018 19:56:29 12/03/1912/02/2018 CMP, serum or plasm a potassium 3.9 mmol/ L 3.5-5. 3 normal Not Available [facility] [address], [address], 12/02/2018 19:56:29 12/03/1912/02/2018 CMP, serum or plasm a chloride 105 mmol/ L 98-110 normal Not Available [facility] [address], [place], [address], 12/02/2018 19:56:29 12/03/1912/02/2018 CMP, serum or plasm a carbon dioxide 24 mmol/ L 20-32 normal Not Available [facility] [address], [address], 12/02/2018 19:56:29 12/03/1912/02/2018 CMP, serum or plasm a calcium 8.7 mg/dL 8.6-10 .2 normal Not Available [facility] [address], [address], 12/02/2018 19:56:29 12/03/1912/02/2018 CMP, serum or plasm a protein, total 6.4 g/dL 6.1-8. 1 normal Not Available [facility] [address], [address], 12/02/2018 19:56:29 12/03/1912/02/2018 CMP, serum or plasm a albumin 4.0 g/dL 3.6-5. 1 normal Not Available [facility] [address] [place], [place], [address], 12/02/2018 19:56:29 12/03/1912/02/2018 CMP, serum or plasm a globulin 2.4 g/dL_ (calc ) 1.9-3. 7 normal Not Available [facility] [address] [place], [place], [address], 12/02/2018 19:56:29 12/03/1912/02/2018 CMP, serum or plasm a albumin/glob ulin ratio 1.7 (calc ) 1.0-2. 5 normal Not Available [facility] [address] [place], [place], [address], 12/02/2018 19:56:29 12/03/1912/02/2018 CMP, serum or plasm a bilirubin, total 0.6 mg/dL 0.2-1. 2 normal Not Available [facility] [address] [place], [place], [address], 12/02/2018 19:56:29 12/03/1912/02/2018 CMP, serum or plasm a alkaline phosphatase 35 U/L 33-115 normal Not Available [facility] [address] [place], [place], [address], 12/02/2018 19:56:29 12/03/1912/02/2018 CMP, serum or plasm a AST 12 U/L 10-30 normal Not Available [facility] [address] [place], [place], [address], 12/02/2018 19:56:29 12/03/1912/02/2018 CMP, serum or plasm a ALT 9 U/L 6-29 normal Not Available [facility] [address] [place], [place], [address], 12/02/2018 19:56:29 12/03/1912/02/2018 CBC w/ auto diff white blood cell count 6.1 thous and/u L 3.8-10 .8 normal Not Available [facility] [place] [facility] [address], [place], [address], 12/02/2018 20:48:48 12/03/1912/02/2018 CBC w/ auto diff red blood cell count 4.05 rachell on/uL 3.80-5 .10 normal Not Available [facility] [place] [facility] [address], [place], [address], 12/02/2018 20:48:48 12/03/1912/02/2018 CBC w/ auto diff hemoglobin 11.9 g/dL 11.7-1 5.5 normal Not Available [facility] [place] [facility] [address], [place], [address], 12/02/2018 20:48:48 12/03/1912/02/2018 CBC w/ auto diff hematocrit 36.3 % 35.0-4 5.0 normal Not Available [facility] [place] [facility] [address], [place], [address], 12/02/2018 20:48:48 12/03/1912/02/2018 CBC w/ auto diff MCV 89.6 fL 80.0-1 00.0 normal Not Available [facility] [place] [facility] [address], [place], [address], 12/02/2018 20:48:48 12/03/1912/02/2018 CBC w/ auto diff MCH 29.4 pg 27.0-3 3.0 normal Not Available [facility] [place] [facility] [address], [place], [address], 12/02/2018 20:48:48 12/03/1912/02/2018 CBC w/ auto diff MCHC 32.8 g/dL 32.0-3 6.0 normal Not Available [facility] [place] [facility] [address], [place], [address], 12/02/2018 20:48:48 12/03/1912/02/2018 CBC w/ auto diff RDW 12.9 % 11.0-1 5.0 normal Not Available [facility] [place] [facility] [address], [place], [address], 12/02/2018 20:48:48 12/03/1912/02/2018 CBC w/ auto diff platelet count 239 thous and/u L 140-40 0 normal Not Available [facility] [place] [facility] [address], [place], [address], 12/02/2018 20:48:48 12/03/19 19 12/02/2018 CBC w/ auto diff MPV 10.4 fL 7.5-12 .5 normal Not Available [facility] [place] [facility] [address], [place], [address], 12/02/2018 20:48:48 12/03/1912/02/2018 CBC w/ auto diff absolute neutrophils 3318 cells /uL 1500-7 800 normal Not Available [facility] [place] [facility] [address], [place], [address], 12/02/2018 20:48:48 12/03/1912/02/2018 CBC w/ auto diff absolute lymphocytes 2166 cells /uL 850-39 00 normal Not Available [facility] [place] [facility] [address], [place], [address], 12/02/2018 20:48:48 12/03/1912/02/2018 CBC w/ auto diff absolute monocytes 464 cells /uL 200-95 0 normal Not Available [facility] [place] [facility] [address], [place], [address], 12/02/2018 20:48:48 12/03/1912/02/2018 CBC w/ auto diff absolute eosinophils 122 cells /uL 15-500 normal Not Available [facility] [place] [facility] [address], [place], [address], 12/02/2018 20:48:48 12/03/1912/02/2018 CBC w/ auto diff absolute basophils 31 cells /uL 0-200 normal Not Available [facility] [place] [facility] [address], [place], [address], 12/02/2018 20:48:48 12/03/1912/02/2018 CBC w/ auto diff neutrophils 54.4 % normal Not Available [facility] [place] [facility] [address], [place], [address], 12/02/2018 20:48:48 12/03/1912/02/2018 CBC w/ auto diff lymphocytes 35.5 % normal Not Available [facility] [place] [facility] [address], [place], [address], 12/02/2018 20:48:48 12/03/1912/02/2018 CBC w/ auto diff monocytes 7.6 % normal Not Available [facility] [place] [facility] [address], [place], [address], 12/02/2018 20:48:48 12/03/1912/02/2018 CBC w/ auto diff eosinophils 2.0 % normal Not Available [facility] [place] [facility] [address], [place], [address], 12/02/2018 20:48:48 12/03/1912/02/2018 CBC w/ auto diff basophils 0.5 % normal Not Available [facility] [place] [facility] [address], [address], 12/02/2018 20:48:48 12/03/1912/02/2018 TSH, serum or plasm a TSH w/reflex to FT4 0.91 mIU/L normal Refer ence Range > or = 20 Years 0.40- 4.50 Pregn trenton Range s First trime ster 0.26- 2.66 Secon d trime ster 0.55- 2.73 Third trime ster 0.43- 2.91 Not Available [facility] [place] [facility] [address], [address], 12/02/2018 22:07:29 12/03/1912/02/2018 vitam in D, 25-hy [...] /MS is recom georgette d: order code 13504 (ihsan ents >2yrs ). For more tadeor jay valdivia on this test, go to: http: //ceci luna gnost ics.c om/fa q/FAQ 163 (This link is being provi ded for infor jay nal/e dennis ional purpo ses only. ) Not Available [facility] [place] [facility] [address], [place], [address], 12/02/2018 22:52:27 Result Notes None recorded. Problems Name Problem SNOMED Code Status Onset Date Resolution Date Notes Provider Name and Address Organization Details Recorded Time Contact dermatitis 02779122 Completed 201612/09/2018 FRANSISCA AVENDAÑO NP [address] [place], [address], [facility] 9 12:54:11 Perioral dermatitis 495551601 Active 2018 FRANSISCA AVENDAÑO NP [address] [place], [address], [facility] 9 12:51:05 Problem Notes None recorded. Medical Equipment None Reported. Allergies Allergen ID Allergen Name Allergen Category Reaction Reaction Severity Criticality Documentation Date Start Date Code Code System Note Provider Name and Address Organization Details Recorded Time 746097 Product containin g penicilli n (product) medicatio n anaphylax is Not available Not available 04/05/2017 58379 8001 SNOMED Kenyatta Silveira [facility] 7 15:00:59 [id number] cat dander environme nt eye redness Not available Not available 12/06/2017 77077 UNK Jennifer Costa [facility] 8 08:44:50 Medications Name Sig Start Date [...] Updated DateTime 9 162.56 cm 22.5 kg/m2 62858.6 g 68 /min 98 % 98 % 98 mm[Hg] 60 mm[Hg] Jennifer Costa [facility] 9 10:10:36 Date Recorded Body height Body mass index (BMI) Body weight Heart rate Oxygen saturation Oxygen saturation in Arterial blood by Pulse oximetry Systolic blood pressure Diastolic blood pressure Provider Name and Address Organization Details Last Updated DateTime 9 162.56 cm 22.8 kg/m2 58796.7 9 g 99 /min 63 % 63 % 100 mm[Hg] 60 mm[Hg] Jennifer Costa [facility] 9 14:08:06 Date Recorded Body height Body mass index (BMI) Body weight Heart rate Oxygen saturation Oxygen saturation in Arterial blood by Pulse oximetry Systolic blood pressure Diastolic blood pressure Provider Name and Address Organization Details Last Updated DateTime 9 162.56 cm 22.5 kg/m2 73684.6 g 63 /min 99 % 99 % 110 mm[Hg] 60 mm[Hg] Jennifer Costa [facility] 9 14:06:01 Date Recorded Body height Body mass index (BMI) Body weight Heart rate Systolic blood pressure Diastolic blood pressure Provider Name and Address Organization Details Last Updated DateTime 8 162.56 cm 21.6 kg/m2 81597.6 4 g 70 /min 100 mm[Hg] 60 mm[Hg] Jennifer Costa [facility] 8 08:43:00 Date Recorded Body height Body mass index (BMI) Body weight Heart rate Oxygen saturation Oxygen saturation in Arterial blood by Pulse oximetry Systolic blood pressure Diastolic blood pressure Provider Name and Address Organization Details Last Updated DateTime 9 163.2 cm 22.4 kg/m2 41000.3 5 g 60 /min 98 % 98 % 106 mm[Hg] 68 mm[Hg] Sue Flores [facility] 9 12:44:29 Social History Question Answer Notes LastModified by Organizat ion Details LastModified Time Tobacco Smoking Status Never Smoker Kenyatta Silveira tej, [facility] 04/05/2017 15:00:22 Auto Related Injury? 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 Heavy Information not available 04/05/2017 Mental Status None recorded. Family History Relationship Description Onset Age of this Age Resolved Age Notes LastModified by Organization Details LastModified Time Father Hypertensive disorder [email or web address] Not available 2016 15:03:34 Mother Hypertensive disorder [email or web address] Not available 2016 15:03:43 Medical History Condition Response gout N asthma N glaucoma N cataracts N COPD N claustrophobic N bleeding disorder N breast cancer N diabetes N heart condition N hiatal hernia N diverticulitis N anemia N anxiety disorder N headache N has pacemaker N back pain N defects or inherited diseases N arthritis N atrial fibrillation N GERD/reflux N colon cancer N GI problems N hepatitis N stroke N Gynecological History Statement/Question Response Date and result of last mammogram 2018 -Normal Current Control Pill Duration of Flow (days) 4 Date of Last Pap 11/03/2018 Current Control Method BCPs Date of LMP 12/13/2018 Obstetrics History GPAL:G 0 P 0 0 0 0 Immunizations Vaccine Type Date Status Note Provider Nam e and Address Organization Details Recorded Time Tdap 08/27/2014 completed Dorota burnham [facility] 12/18/2022 09:10:54 Influenza, MDCK, quadrivalent, PF 04/05/2017 completed Not Available [facility] 0 03:01:57 Past Encounters Encounter ID Performer Location Encounter Start Date Encounter Closed Date Diagnosis/Indication Diagnosis SNOMED-CT Code Diagnosis ICD10 Code Diagnosis Note [id number] Nagi Hernandes MD [facility] [address] [place] [address] 04/05/2017 14:43:41 04/05/2017 15:30:43 Contact dermatitis 89839282 L25.9 Location right lower eyelid. Most probably the diagnosis. Advised patient to try over-the-c ounter low potency cortisone ointment applicatio n twice daily for next 7 days.Megan douglas is told to call our office back in a week with update Influenza vaccine needed [id number] 106 Z23 [id number] Nagi Hernandes MD [facility] [address] [facility], [address] [place] [address] 04/14/2017 13:08:47 04/14/2017 14:06:51 Contact dermatitis 89144090 L25.9 Location right lower eyelid.Dur ation almost 4 weeks. Failed over-the-c ounter low potency hydrocorti sone. Trial with Lotrisone for 2 weeks. If symptoms persist, I will refer patient to dermatolog ist. Impetigo 62900603 L01.00 Location lower chin. Trial with mupirocin ointment. [id number] Nagi Hernandes MD [facility] [address] [facility], [address] [place] [address] 12/06/2017 08:24:02 12/06/2017 10:12:28 Adult health examination [id number] Z00.00 37 yo healthy female. CV risk: BP normotensi ve BMI in normal range Nonsmoker Lipids pending Contracept ion: OCP Counseled to use sunscreen and insect repellent, safe driving, importance of taking folic acid prior to and benefits of breast feeding discussed Immunizati ons: UTD checking on Tdap healthy diet and importance of exercise discussed alcohol in moderation discussed depression : 0/6 [id number] Nagi Hernandes MD [facility] [address] [facility], [address] [place] [address] 07/22/2018 09:53:29 07/22/2018 10:32:43 Atopic dermatitis [id number] L20.9 Exam consistent with atopic dermatitis . Advised patient to discontinu e homemade face scrubs and trial Cetaphil or another nonallerge dorothea-based product as well as the Medrol Dosepak and hydroxyzin e. Patient to return to office if symptoms fail to improve or worsen and will refer to dermatolog ist. Patient states understand ing of instructgordo lovett [id number] Nagi Hernandes MD [facility] [address] [facility], [address] [place] [address] 07/29/2018 13:59:23 07/29/2018 14:00:32 Atopic dermatitis 58393644 L20.9 Improvemen t of rash but slowly returning. Will provide patient with longer taper steroid, topical if needed as well. If no lasting improvemen t will refer for further eval evaluation and management .. [id number] Nagi Hernandes MD [facility] [address] [facility], [address] [place] [address] 08/09/2018 13:54:54 08/09/2018 15:17:43 Atopic dermatitis [id number] L20.9 Patient appears to have atopic dermatitis that is not been responsive to long steroid taper. Will proceed with dermatolog y referral as patient is quite uncomforta ble with burning and irritation due to rash. [id number] Nagi Hernandes MD [facility] [address] [facility], [address] [place] [address] 12/09/2018 12:32:26 12/09/2018 13:28:41 Adult health examination [id number] Z00.00 38 yo healthy female. CV risk: BP NORMOTENSI VE BMI in normal range Nonsmoker Lipids Counseled use insect repellent and sunscreen, safe driving Immunizati ons: Up-to-date healthy diet and importance of exercise discussed alcohol in moderation discussed depression :0/6 contracept ion: OCPPatient does state that she will be moving to [facility] and likely transferri her care. Perioral dermatitis [id number] L71.0 She under the care of Dr. 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 These [employer] for her Pap smears. Last one completed in October 2017. Patient also received order for mammogram as she will be 38 in the fall. Patient believes she had a Tdap vaccine approximately 3 years ago. Patient will verify that and obtain medical records. FRANSISCA AVENDAÑO NP [address] [place], [address], [facility] 12/06/2017 09:01:03 07/22/2018 text/html Patient presents [...] apple cider vinegar. FRANSISCA AVENDAÑO NP [address] [place], [address], [facility] 07/22/2018 10:37:01 07/29/2018 text/html Patient presents [...] rash anywhere else. FRANSISCA AVENDAÑO NP [address] [place], [address], [facility] 07/29/2018 14:27:31 08/09/2018 text/html Patient presents [...] on her face. FRANSISCA AVENDAÑO NP [address] [place], [address], [facility] 08/09/2018 14:23:59 12/09/2018 text/html Patient presents to office for CPE. 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 Had her first mammogram in July 2018. Per patient there were no abnormal findings. Patient recently saw a commercial management accountant for diagnosis of periorbital dermatitis which she has been taking an antibiotic with significant improvement of her symptoms. FRANSISCA AVENDAÑO NP [address] [place], [address], [facility] 12/09/2018 13:25:45 OBGyn Episode No OBEpisode recorded.
--- NOTE | 2024-11-07 12:00 | P.CONAN_ITS ---
Documented by User: Kami Pizarro NP 11/07/24 12:00 HPI - Anesthesia Eval Consult details Narrative: 44yo F for Colonoscopy PMFSH Active Problems Active Problems: All Active Problems Constipation (Acute) Conjunctivitis (Acute) Acute bacterial sinusitis (Acute) Flu-like symptoms (Acute) Elevated LDL cholesterol level (Acute) Screening for colon cancer (Acute) control counseling (Acute) Lipoma (Acute) Screen for sexually transmitted diseases (Acute) Strep pharyngitis (Acute) Immunization counseling (Acute) Breast cancer screening by mammogram (Acute) Drug rash (Acute) Rash and nonspecific skin eruption (Acute) Counseling for control, oral contraceptives (Acute) Screening for malignant neoplasm of cervix (Acute) Well woman exam with routine gynecological exam (Acute) Annual physical exam (Acute) Past Medical History Medical History Constipation Surgical History Surgical History Hx of LASIK Social History Social History Housing: House Are you a primary physician assistant primary care to a significant other at home: No Do you presently have visiting nurse or other home services: No Alcohol intake: current Alcohol intake frequency: does not drink Alcohol type: wine Patient Tobacco Use Status: Never used Tobacco e-Cigarette/Vaping Use: Never Used Second Hand Smoke Exposure: No Use of substances other than those prescribed or required for medical reasons: No Are you DNR?: No Advance Directives: No Advance Directives Information Provided: Yes Patient : No FDLMP: 10/31/24 : No Poor oral hygiene: No service: No Current occupational status: employed Current occupational exposures/hazards: No Cognitive needs: No Hearing needs: No Vision needs: No Meds Allergies Allergy/AdvReac Type Severity Reaction Status Date / Time Penicillins AdvReac Severe Anaphylaxis Verified 11/08/24 09:39 Cats Allergy Unknown WATERY Uncoded 11/08/24 09:39 EYES, PCN Allergy Unknown anaphylaxis Uncoded 11/08/24 09:39 Home Medications ?Medication ?Instructions ?Recorded ?Confirmed ?Last Taken ?Type omega 1-qli-ebv-fish oil 1,000 mg 1 cap PO DAILY 09/2611/08/24 Unknown History (120 mg-180 mg) capsule (Fish Oil) Assessment and Plan Assessment Anesthesia Assessment: Chart Reviewed Documented by User: Willem Ayala MD 11/08/24 10:21 PMF Past Medical History Medical History Constipation Patient : No Family History Family history of problems with anesthesia: No Surgical History Surgical History Hx of LASIK History of Problems with Anesthesia: No Social History Social History Housing: House Are you a primary physician assistant primary care to a significant other at home: No Do you presently have visiting nurse or other home services: No Alcohol intake: current Alcohol intake frequency: does not drink Alcohol type: wine Patient Tobacco Use Status: Never used Tobacco e-Cigarette/Vaping Use: Never Used Second Hand Smoke Exposure: No Use of substances other than those prescribed or required for medical reasons: No Are you DNR?: No Advance Directives: No Advance Directives Information Provided: Yes Patient : No FDLMP: 10/31/24 : No Poor oral hygiene: No service: No Current occupational status: employed Current occupational exposures/hazards: No Cognitive needs: No Hearing needs: No Vision needs: No Meds Allergies Allergy/AdvReac Type Severity Reaction Status Date / Time Penicillins AdvReac Severe Anaphylaxis Verified 11/08/24 09:39 Cats Allergy Unknown WATERY Uncoded 11/08/24 09:39 EYES, PCN Allergy Unknown anaphylaxis Uncoded 11/08/24 09:39 Home Medications ?Medication ?Instructions ?Recorded ?Confirmed ?Last Taken ?Type omega 3-avf-dum-fish oil 1,000 mg 1 cap PO DAILY 09/2611/08/24 Unknown History (120 mg-180 mg) capsule (Fish Oil) Exam Airway Mallampati Class: I TM Dist: >3cm Neck ROM: Full Loose/Missing/Broken Teeth: No Heart: ok Lungs: ok Assessment and Plan Assessment Anesthesia Assessment: Anesthesia Plan Discussed Final Anesthetic Review Family History of Problems with Anesthesia: No History of Problems with Anesthesia: No NPO: Yes ASA Class: I Final Preanesthetic Review: No Changes in Pt Med Stat, Meds/Allgs Chart Reviewed, Consent Obtained/Reviewed and Anes Risks/Benef Reviewed Patient Risk: Low Procedure Risk: Low Anesthetic Plan Anesthetic Plan: MAC: and Agree w/ Assess. and Plan Disposition: Standard PACU
[2024-11-08 09:48] VITALS: BP 104/69; PULSE 63; RESP 12; TEMP 36.7; O2SAT 100; BMI 21.2
[2024-11-08 09:51] LABS: UPreg QC Valid YES; Urine Pregnancy NEGATIVE (NEGATIVE)
[2024-11-08] MEDS: Lactated Ringers 1,000 ML 100 ML IVCONT (09:53)
--- NOTE | 2024-11-08 10:03 | MHC.SHP ---
Pre-Procedural Eval Section A - 24 Hr Update-Section A only Date of Service: 11/08/24 Section B - Complete if H&P > 30 days Chief Complaint: screening,constipation Relevant Family History (Specify if Yes): No Relevant Social History: None Present Medications: see Short Stay Collaborative assessment Medical History: Significant History (constipation ) History of Previous Operations: Relevant previous surgery/procedure and date(s) (lasik) Allergies: Allergies Allergy/AdvReac Type Severity Reaction Status Date / Time Penicillins AdvReac Severe Anaphylaxis Verified 11/08/24 09:39 Cats Allergy Unknown WATERY Uncoded 11/08/24 09:39 EYES, PCN Allergy Unknown anaphylaxis Uncoded 11/08/24 09:39 Review of Systems Sugical H&P ROS: Negative: Constitution, Cardiovascular, Respiratory, Neurological, Psychiatric, Hem-Onc, Allergic/Immunologic, Gastrointestinal, Genitourinary, Musculoskeletal, Integumentary, Endocrine and Eyes/Ears/Nose/Throat Exam Surgical H&P Exam: Normal: HEENT, Normal: Heart, Normal: Lungs, Normal: Extremities, Normal: Abdomen, Normal: Skin and Normal: Neurological Plan Diagnosis/Plan: Unchanged I have reviewed the history and physical and performed a pertinent physical examination on my patient. No changes have occurred unless specified. Time Spent With Patient Time: Total time managing care of this patient today ____ minutes.
--- NOTE | 2024-11-08 10:34 | P.OPN-COLO_ITS ---
Colonoscopy Operative Note Operative Note Date of Service: 11/08/24 Narrative: Operative Information Procedure Description: Colonoscopy Indication: screening Anesthesia: MAC COLONOSCOPY Instrument: Olympus variable stiffness pediatric scope 190L Colonoscopy Monitoring: Vital signs and clinical assessment, continuous EKG monitoring, Pulse oximetry, Carbon Dioxide monitoring and blood pressure monitoring were done throughout the procedure. Colon withdrawal time was 12 minutes. Procedure: The patient was placed in the left lateral decubitis position and pre-procedure medications were administered. After a digital rectal examination of the ano-rectum, the video colonoscope was inserted into the rectum and advanced through the colon to the cecum/TI. The colonoscope was slowly withdrawn in a retrograde panoramic fashion and the colon mucosa was carefully examined including a retroflexed view of the rectum. Findings and interventions are described below. Procedure Difficulty: moderate Findings: Terminal Ileum-normal Cecum: 6-7 mm sessile polyp lifted with eleview and removed with cold snare Ascending Colon: 10-11 mm flat polyp lifted with eleview and removed with cold snare Transverse Colon -normal Descending Colon:normal Sigmoid Colon: normal Rectum: Retroflexion with small internal hemorrhoids seen, grade I with skin tag Anorectum - normal Intervention: eleview and cold snare Colon preparation: [place] Bowel Preparation Scale Right colon; 2 Transverse colon: 2 Left colon; 2 (0 = Unprepared colon segment with mucosa not seen due to solid stool that cannot be cleared. 1 = Portion of mucosa of the colon segment seen, but other areas of the colon segment not well seen due to staining, residual stool and/or opaque liquid. 2 = Minor amount of residual staining, small fragments of stool and/or opaque liquid, but mucosa of colon segment seen well. 3 = Entire mucosa of colon segment seen well with no residual staining, small fragments of stool or opaque liquid) Impression and Post Procedure Diagnosis: colon polyps x 2 internal hemorrhoids Plan: High fiber diet leaflet Avoid straining at stool, epsom salts and sitz bath, anusol supps or cream Repeat Colonoscopy in 3 years due to discrete polyps or earlier if clinically indicated Above findings were reviewed with the patient and relevant handouts were provided if indicated.
[2024-11-08 10:42] VITALS: BP 93/57; PULSE 74; RESP 18; TEMP 36.4; O2SAT 100
[2024-11-08 10:47] VITALS: BP 92/59
[2024-11-08 10:57] VITALS: BP 102/71; PULSE 62; RESP 18; TEMP 36.8; O2SAT 100
== END 2024-11-08 11:18 | disposition home or self-care (01) ==
PROVIDERS: Nurse Practitioner; PCP Family Medicine; Visit Provider Internal Medicine Gastroenterology
PROC: 0DJD8ZZ Inspection of Lower Intestinal Tract, Via Natural or Artificial Opening Endoscopic (ICD-10-PCS; CPT 45378; principal; 2024-11-08 11:40)
DX: Z12.11 Encounter for screening for malignant neoplasm of colon (principal); D12.0 Benign neoplasm of cecum; D12.2 Benign neoplasm of ascending colon; K64.0 First degree hemorrhoids; K64.4 Residual hemorrhoidal skin tags
CPT/HCPCS: 45385; 45381; 81025; 88305; J2003; J2704

== ENCOUNTER → 2024-11-08 09:27 | Outpatient (BNV) | payer BC, SELFPAY | PROVIDERS: PCP Family Medicine; Visit Provider Internal Medicine Gastroenterology | DX: Z12.11 Encounter for screening for malignant neoplasm of colon (principal); D12.0 Benign neoplasm of cecum; D12.2 Benign neoplasm of ascending colon; K64.0 First degree hemorrhoids; K64.4 Residual hemorrhoidal skin tags | CPT/HCPCS: 45381; 45385 ==